=== PATIENT | male | born 1945 | race African-American/Black ===

== ENCOUNTER 2016-11-14 10:48 | Inpatient (IN) | payer OTHER ==
[2016-11-14] MEDS ORDERED: NITROGLYCERIN SL PRN (11:12)
[2016-11-14] MEDS ORDERED: ASPIRIN PO STA (11:12)
--- NOTE | 2016-11-14 11:24 | PROVIDER DOCUMENTATION ---
HPI-Respiratory General - General Chief Complaint: Shortness of Breath Stated Complaint: SOB Time Seen by Provider: 11/14/16 11:12 Allergies/Adverse Reactions: Patient Allergies Allergy/AdvReac Type Severity Reaction Status Date / Time No Known Allergies Allergy Verified 10/12/16 16:51 Home Medications: Home Medication List Medication Instructions Recorded Confirmed Last Taken Type Albuterol [Albuterol Neb] 2.5 mg INH Q4H PRN PRN 12/13/12 11/14/16 11/14/16 08: 30 History Budesonide/Formoterol Fumarate 10.2 gm IH BID 12/13/12 11/14/16 11/14/16 09:00 History [Symbicort 80-4.5 Mcg Inhaler] Clopidogrel [Plavix] 75 mg PO DAILY 12/13/12 11/14/16 11/14/16 09:00 History Pravastatin Sodium [Pravachol] 40 mg PO DAILY 12/13/12 11/14/16 11/14/16 09:00 History Albuterol Sulfate [Albuterol 8.5 gm IH Q6H PRN #1 hfa.aer.ad 04/22/16 11/14/16 11/14/16 10:30 Rx Sulfate Hfa] Folic Acid 1 mg PO QAM 04/22/16 11/14/16 11/14/16 09:00 History Omeprazole [Prilosec] 20 mg PO DAILY@0700 04/22/16 11/14/16 11/14/16 06:00 History Dimethicone/Oxybenzone [place] 0 gm TOP PRN PRN #0 stick 10/12/16 11/14/16 Rx [Blistex Medicated [place] Lip [place]] Furosemide [Lasix] 40 mg PO DAILY #0 tablet 10/12/16 11/14/16 11/14/16 09:00 Rx Magnesium Cl D.r. [Slow-Mag] 64 mg PO DAILY #0 tablet 10/12/16 11/14/16 09:00 Rx Mupirocin Ointment [Bactroban 1 applicatn TOP BID #0 tube 10/12/16 11/14/16 Rx Ointment] Digoxin [Lanoxin] 125 microgm PO DAILY #0 tablet 10/17/16 11/14/1617 06: 00 Rx Diltiazem C.d. [Cardizem C.d] 120 mg PO DAILY #1 capsule 10/17/16 11/14/1611/14 09:00 Rx Roflumilast [Daliresp] 500 microgm PO DAILY #0 tablet 10/17/16 11/14/16 06:00 Rx Spironolactone [Aldactone] 25 mg PO BID #0 tablet 10/17/16 11/14/16 11/14/16 09: 00 Rx Tiotropium [place] Inhaler 1 puff INH RTDAILY #0 inhaler 10/17/16 11/14/1611/14 09:00 Rx [Spiriva] Acidophilus/[place] [Lactinex 1 tab PO DAILY 11/14/16 11/14/16 11/14/16 09: 00 History Chewable] Aspirin EC 1 tab PO DAILY 11/14/16 11/14/16 11/14/16 09:00 History Isosorbide Mononitrate [Isosorbide 1 tab PO DAILY 11/14/16 11/14/16 11/14/16 09: 00 History Mononitrate ER] Levofloxacin [Levaquin] 1 tab PO DAILY 11/14/16 11/14/16 11/14/16 09:00 History Menthol/Zinc Oxide Ointment 1 applic TOP BID 11/14/16 11/14/16 Unknown History [Calmoseptine Ointment] Metoprolol Tartrate 1 tab PO BID 11/14/16 11/14/16 11/14/16 09:00 History Zinc Sulfate 1 cap PO DAILY 11/14/16 11/14/16 11/14/16 09:00 History - History of Present Illness-Resp Nature of Presenting Problem: A 71 y/o M with multiple medical problems presented with SOB from [place], noted to have low O2 sats of 70's at some point and was started on O2 which improved his O2 sats, noted to have cough and subjective fevers, poor historian, on arrival no acute distress Review of Systems - Adult - REVIEW OF SYSTEMS - ADULT Constitutional: reports: no symptoms reported Eyes: reports: no symptoms reported Ears, Nose, Mouth & Throat: reports: no symptoms reported Cardiovascular: reports: no symptoms reported Respiratory: reports: see HPI Gastrointestinal: reports: no symptoms reported Genitourinary: reports: no symptoms reported Musculoskeletal: reports: no symptoms reported Integumentary: reports: no symptoms reported Neurological: reports: no symptoms reported Psychiatric: reports: no symptoms reported Endocrine: reports: no symptoms reported Hematologic/Lymphatic: reports: no symptoms reported Allergic/Immunologic: reports: no symptoms reported All Other Systems: Reviewed and Negative Past History - Adult - PAST MEDICAL HISTORY-ADULT Review of Records: reports: Old Records Reviewed, Nursing Assessment Review, Medications Reviewed, Social history reviewed & non-contributory. Major Childhood Illnesses: reports: denies history Cardiovascular: reports: CHF, HTN, hyperlipidemia Respiratory: reports: COPD Gastrointestinal: reports: denies history Obstetrical/Gynecological: reports: denies history Genitourinary: reports: denies history Musculoskeletal: reports: denies history Neurological: reports: denies history Endocrine/Immune: reports: Myeloma Other Conditions: reports: denies history - PRIOR SURGERIES/PROCEDURES Surgical/Procedure History: reports: reviewed, not pertinent - PRIOR HOSPITALIZATIONS Prior Hospitalizations: reports: for other non-related - IMMUNIZATION STATUS Childhood Immunizations: See Nurse Assessment Flu Vaccine: See Nurse Assessment - FAMILY HISTORY Family History: reviewed, not pertinent Physical Exam-General - PHYSICAL EXAM-ADULT Initial Vital Signs Reviewed: Yes - CONSTITUTIONAL General Appearance: appears well, alert, no apparent distress - EYES Eyes: PERRL/EOMI, pink conjunctivae - HEAD, EARS, NOSE, MOUTH & THROAT HENMT: normocephalic/atraumatic, moist mucous membranes, normal ENT inspection - NECK Neck: non-tender, full range of motion - RESPIRATORY Respiratory: chest non-tender, lungs clear, normal breath sounds - CARDIOVASCULAR Cardiovascular: normal peripheral pulses, regular rate, rhythm, no edema, no gallop, no JVD, no murmur - GASTROINTESTINAL (ABDOMEN) Abdominal Exam: normal bowel sounds, non tender, soft, no organomegaly, no pulsatile mass - MUSCULOSKELETAL Back Exam: normal inspection, no CVA tenderness, no vertebral tenderness Extremity: normal range of motion, non-tender - SKIN Integumentary: normal color, normal turgor - 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 as tested, grossly normal - PSYCHIATRIC Psych/Mental Status: normal mood/affect Progress - PLAN OF CARE/RESULTS Progress/Plan/Lab Results: Laboratory Tests 11/14/16 11/14/16 11/14/16 11:25 11:25 11:25 WBC 14.29 H RBC 3.15 L Hgb 10.5 L Hct 32.7 L MCV 103.8 H MCH 33.3 H MCHC 32.1 L RDW Std Deviation 16.7 H Plt Count 208 MPV 10.5 H Immature Gran % (Auto) 0.4 Neut % (Auto) 86.2 H Lymph % (Auto) 2.7 L [place] % (Auto) 10.5 H Eos % (Auto) 0.1 Baso % (Auto) 0.1 Immature Gran # (Auto) 0.06 H Neut # (Auto) 12.31 H Lymph # (Auto) 0.39 L [place] # (Auto) 1.50 H Eos # (Auto) 0.02 Baso # (Auto) 0.01 PT INR PTT (Actin FS) D-Dimer 3.12 H Specimen Type Sample Site pH pCO2 pO2 HCO3 Base Excess Oxyhemoglobin ABG O2 Sat (Calculated) ABG O2 Saturation ABG Carboxyhemoglobin ABG Methemoglobin Enrique Test A-a O2 Difference Total Hemoglobin Lactate Liter Flow Blood Gas Modality FiO2 % Sodium 131 L Potassium 5.7 H Chloride 93 L Carbon Dioxide 24 L Anion Gap 14 BUN 55 H Creatinine 1.1 Estimated GFR/1.73 m2 > 60 BUN/Creatinine Ratio 50 Glucose 105 H Calculated Osmolality 278 Calcium 9.0 Magnesium 2.2 Total Bilirubin 0.49 AST 29 ALT 25 Alkaline Phosphatase 214 H Creatine Kinase 30 Troponin T Xal-C-Qzrvtrciuom Pept Total Protein 6.4 Albumin 3.1 L Globulin 3.3 Albumin/Globulin Ratio 0.9 Urine Source Urine Color Urine Turbidity Urine pH Ur Specific [place] Urine Protein Ur Glucose (Stick) Ur Ketones (Stick) Urine Blood Urine Nitrite Urine Bilirubin Urobilinogen Dipstick Urine Leukocytes Urine WBC (Auto) Urine RBC (Auto) U Epithel Cells (Auto) Urine Bacteria (Auto) 11/14/16 11/14/16 11/14/16 11:25 11:25 11:25 WBC RBC Hgb Hct MCV MCH MCHC RDW Std Deviation Plt Count MPV Immature Gran % (Auto) Neut % (Auto) Lymph % (Auto) [place] % (Auto) Eos % (Auto) Baso % (Auto) Immature Gran # (Auto) Neut # (Auto) Lymph # (Auto) [place] # (Auto) Eos # (Auto) Baso # (Auto) PT 11.2 INR 1.06 PTT (Actin FS) 26.9 D-Dimer Specimen Type Sample Site pH pCO2 pO2 HCO3 Base Excess Oxyhemoglobin ABG O2 Sat (Calculated) ABG O2 Saturation ABG Carboxyhemoglobin ABG Methemoglobin Enrique Test A-a O2 Difference Total Hemoglobin Lactate Liter Flow Blood Gas Modality FiO2 % Sodium Potassium Chloride Carbon Dioxide Anion Gap BUN Creatinine Estimated GFR/1.73 m2 BUN/Creatinine Ratio Glucose Calculated Osmolality Calcium Magnesium Total Bilirubin AST ALT Alkaline Phosphatase Creatine Kinase Troponin T 0.045 Tsy-L-Bhdtqmdwevp Pept 2115 H Total Protein Albumin Globulin Albumin/Globulin Ratio Urine Source Urine Color Urine Turbidity Urine pH Ur Specific [place] Urine Protein Ur Glucose (Stick) Ur Ketones (Stick) Urine Blood Urine Nitrite Urine Bilirubin Urobilinogen Dipstick Urine Leukocytes Urine WBC (Auto) Urine RBC (Auto) U Epithel Cells (Auto) Urine Bacteria (Auto) 11/14/16 11/14/16 11:25 11:30 WBC RBC Hgb Hct MCV MCH MCHC RDW Std Deviation Plt Count MPV Immature Gran % (Auto) Neut % (Auto) Lymph % (Auto) [place] % (Auto) Eos % (Auto) Baso % (Auto) Immature Gran # (Auto) Neut # (Auto) Lymph # (Auto) [place] # (Auto) Eos # (Auto) Baso # (Auto) PT INR PTT (Actin FS) D-Dimer Specimen Type ARTERIAL Sample Site R RADIAL pH 7.48 H pCO2 37 pO2 84 HCO3 27.9 H Base Excess 3.9 H Oxyhemoglobin 94.2 L ABG O2 Sat (Calculated) 13.9 L ABG O2 Saturation 98.1 ABG Carboxyhemoglobin 2.40 ABG Methemoglobin 1.6 H Enrique Test YES A-a O2 Difference 98.0 Total Hemoglobin 10.4 L Lactate 0.90 Liter Flow 3.0 Blood Gas Modality [place] FiO2 % 32.0 Sodium Potassium Chloride Carbon Dioxide Anion Gap BUN Creatinine Estimated GFR/1.73 m2 BUN/Creatinine Ratio Glucose Calculated Osmolality Calcium Magnesium Total Bilirubin AST ALT Alkaline Phosphatase Creatine Kinase Troponin T Dga-P-Hdfwbbkpnxj Pept Total Protein Albumin Globulin Albumin/Globulin Ratio Urine Source CLEAN CATCH Urine Color STRAW Urine Turbidity CLEAR Urine pH 5.0 Ur Specific [place] 1.010 Urine Protein NEGATIVE Ur Glucose (Stick) NEGATIVE Ur Ketones (Stick) NEGATIVE Urine Blood NEGATIVE Urine Nitrite NEGATIVE Urine Bilirubin NEGATIVE Urobilinogen Dipstick NORMAL Urine Leukocytes NEGATIVE Urine WBC (Auto) <10 Urine RBC (Auto) <10 U Epithel Cells (Auto) <10 Urine Bacteria (Auto) NEGATIVE Orders Category Date Time Status Cardiac Monitoring DIRECTED Care 11/14/16 11:13 Active Saline Loc NOW Care 11/14/16 11:13 Active Regular Diet Diet 11/14/16 15:06 Active ANGIOGRAM/PULMONARY ARTERIES [CT] Stat Exams 11/14/16 13:05 Completed CHEST-2 VIEWS [RAD] Stat Exams 11/14/16 11:13 Taken ABG [RESP] Routine Lab 11/14/16 11:30 Completed CBC WITH ELECTRONIC DIFF [HEME] Stat Lab 11/14/16 11:25 Completed CK PROFILE [SP CHEM] Stat Lab 11/14/16 11:25 Completed COMPREHENSIVE METABOLIC PANEL [CHEM] Stat Lab 11/14/16 11:25 Completed D-DIMER [CHEM] Stat Lab 11/14/16 11:25 Completed MAGNESIUM [CHEM] Stat Lab 11/14/16 11:25 Completed PRO B-NATRIURETIC PEPTIDE Stat Lab 11/14/16 11:25 Completed PROTIME WITH INR [COAG] Stat Lab 11/14/16 11:25 Completed PTT [COAG] Stat Lab 11/14/16 11:25 Completed TROPONIN T Stat Lab 11/14/16 11:25 Completed UA NIMS W/REFLEX CULT [URINALYSIS] Stat Lab 11/14/16 11:25 Completed Albuterol 2.5MG/Ipratrop 0.5MG [Duoneb (A & A)] Med 11/14/16 11:34 Discontinued 3 ml INH NOW ONE Aspirin Med 11/14/16 11:12 Discontinued 325 mg PO STAT STA Nitroglycerin Sl [Nitroglycerin] Med 11/14/16 11:12 Active 0.4 mg SL Q5M PRN PRN Aerosol Treatments Routine Oth 11/14/16 11:36 Completed Aerosol Treatments Stat Oth 11/14/16 11:36 Completed Vital Signs Temp Pulse Resp BP Pulse Ox 11/14/16 14:30 89 100/70 11/14/16 14:00 71 97/70 100 11/14/16 13:30 79 90/68 96 11/14/16 11:50 68 16 100 11/14/16 10:21 97.6 F 68 20 101/58 86 L No Known Allergies Allergy (Verified 10/12/16 16:51) Albuterol [Albuterol Neb] 2.5 mg INH Q4H PRN PRN 12/13/12 Budesonide/Formoterol Fumarate [Symbicort 80-4.5 Mcg Inhaler] 10.2 gm IH BID Clopidogrel [Plavix] 75 mg PO DAILY 12/13/12 Pravastatin Sodium [Pravachol] 40 mg PO DAILY 12/13/12 Albuterol Sulfate [Albuterol Sulfate Hfa] 8.5 gm IH Q6H PRN #1 hfa.aer.ad Folic Acid 1 mg PO QAM 04/22/16 Omeprazole [Prilosec] 20 mg PO DAILY@0700 04/22/16 Dimethicone/Oxybenzone [place] [Blistex Medicated [place]] 0 gm TOP PRN PRN #0 stick 10/12/16 Furosemide [Lasix] 40 mg PO DAILY #0 tablet 10/12/16 Magnesium Cl D.r. [Slow-Mag] 64 mg PO DAILY #0 tablet 10/12/16 Mupirocin Ointment [Bactroban Ointment] 1 applicatn TOP BID #0 tube 10/12/16 Digoxin [Lanoxin] 125 microgm PO DAILY #0 tablet 10/17/16 Diltiazem C.d. [Cardizem C.d] 120 mg PO DAILY #1 capsule 10/17/16 Roflumilast [Daliresp] 500 microgm PO DAILY #0 tablet 10/17/16 Spironolactone [Aldactone] 25 mg PO BID #0 tablet 10/17/16 Tiotropium [place] Inhaler [Spiriva] 1 puff INH RTDAILY #0 inhaler 10/17/16 Acidophilus/[place] [Lactinex Chewable] 1 tab PO DAILY 11/14/16 Aspirin EC 1 tab PO DAILY 11/14/16 Isosorbide Mononitrate [Isosorbide Mononitrate ER] 1 tab PO DAILY 11/14/16 Levofloxacin [Levaquin] 1 tab PO DAILY 11/14/16 Menthol/Zinc Oxide Ointment [Calmoseptine Ointment] 1 applic TOP BID 11/14/16 Metoprolol Tartrate 1 tab PO BID 11/14/16 Zinc Sulfate 1 cap PO DAILY 11/14/16 Dietary Diet Regular Diet Start MonNov 14 1506 Laboratory 11/14/16 11/14/16 11/14/16 11:30 11:25 11:25 WBC RBC Hgb Hct MCV MCH MCHC RDW Std Deviation Plt Count MPV Immature Gran % (Auto) Neut % (Auto) Lymph % (Auto) [place] % (Auto) Eos % (Auto) Baso % (Auto) Immature Gran # (Auto) Neut # (Auto) Lymph # (Auto) [place] # (Auto) Eos # (Auto) Baso # (Auto) PT INR PTT (Actin FS) D-Dimer Specimen Type ARTERIAL Sample Site R RADIAL pH 7.48 H pCO2 37 pO2 84 HCO3 27.9 H Base Excess 3.9 H Oxyhemoglobin 94.2 L ABG O2 Sat (Calculated) 13.9 L ABG O2 Saturation 98.1 ABG Carboxyhemoglobin 2.40 ABG Methemoglobin 1.6 H Enrique Test YES A-a O2 Difference 98.0 Total Hemoglobin 10.4 L Lactate 0.90 Liter Flow 3.0 Blood Gas Modality [place] FiO2 % 32.0 Sodium Potassium Chloride Carbon Dioxide Anion Gap BUN Creatinine Estimated GFR/1.73 m2 BUN/Creatinine Ratio Glucose Calculated Osmolality Calcium Magnesium Total Bilirubin AST ALT Alkaline Phosphatase Creatine Kinase Troponin T 0.045 Nld-N-Gxiykhqdrqa Pept Total Protein Albumin Globulin Albumin/Globulin Ratio Urine Source CLEAN CATCH Urine Color STRAW Urine Turbidity CLEAR Urine pH 5.0 Ur Specific [place] 1.010 Urine Protein NEGATIVE Ur Glucose (Stick) NEGATIVE Ur Ketones (Stick) NEGATIVE Urine Blood NEGATIVE Urine Nitrite NEGATIVE Urine Bilirubin NEGATIVE Urobilinogen Dipstick NORMAL Urine Leukocytes NEGATIVE Urine WBC (Auto) <10 Urine RBC (Auto) <10 U Epithel Cells (Auto) <10 Urine Bacteria (Auto) NEGATIVE 11/14/16 11/14/16 11/14/16 11:25 11:25 11:25 WBC RBC Hgb Hct MCV MCH MCHC RDW Std Deviation Plt Count MPV Immature Gran % (Auto) Neut % (Auto) Lymph % (Auto) [place] % (Auto) Eos % (Auto) Baso % (Auto) Immature Gran # (Auto) Neut # (Auto) Lymph # (Auto) [place] # (Auto) Eos # (Auto) Baso # (Auto) PT 11.2 INR 1.06 PTT (Actin FS) 26.9 D-Dimer 3.12 H Specimen Type Sample Site pH pCO2 pO2 HCO3 Base Excess Oxyhemoglobin ABG O2 Sat (Calculated) ABG O2 Saturation ABG Carboxyhemoglobin ABG Methemoglobin Enrique Test A-a O2 Difference Total Hemoglobin Lactate Liter Flow Blood Gas Modality FiO2 % Sodium Potassium Chloride Carbon Dioxide Anion Gap BUN Creatinine Estimated GFR/1.73 m2 BUN/Creatinine Ratio Glucose Calculated Osmolality Calcium Magnesium Total Bilirubin AST ALT Alkaline Phosphatase Creatine Kinase Troponin T Ylm-A-Dystatwhqix Pept 2115 H Total Protein Albumin Globulin Albumin/Globulin Ratio Urine Source Urine Color Urine Turbidity Urine pH Ur Specific [place] Urine Protein Ur Glucose (Stick) Ur Ketones (Stick) Urine Blood Urine Nitrite Urine Bilirubin Urobilinogen Dipstick Urine Leukocytes Urine WBC (Auto) Urine RBC (Auto) U Epithel Cells (Auto) Urine Bacteria (Auto) 11/14/16 11/14/16 11:25 11:25 WBC 14.29 H RBC 3.15 L Hgb 10.5 L Hct 32.7 L MCV 103.8 H MCH 33.3 H MCHC 32.1 L RDW Std Deviation 16.7 H Plt Count 208 MPV 10.5 H Immature Gran % (Auto) 0.4 Neut % (Auto) 86.2 H Lymph % (Auto) 2.7 L [place] % (Auto) 10.5 H Eos % (Auto) 0.1 Baso % (Auto) 0.1 Immature Gran # (Auto) 0.06 H Neut # (Auto) 12.31 H Lymph # (Auto) 0.39 L [place] # (Auto) 1.50 H Eos # (Auto) 0.02 Baso # (Auto) 0.01 PT INR PTT (Actin FS) D-Dimer Specimen Type Sample Site pH pCO2 pO2 HCO3 Base Excess Oxyhemoglobin ABG O2 Sat (Calculated) ABG O2 Saturation ABG Carboxyhemoglobin ABG Methemoglobin Enrique Test A-a O2 Difference Total Hemoglobin Lactate Liter Flow Blood Gas Modality FiO2 % Sodium 131 L Potassium 5.7 H Chloride 93 L Carbon Dioxide 24 L Anion Gap 14 BUN 55 H Creatinine 1.1 Estimated GFR/1.73 m2 > 60 BUN/Creatinine Ratio 50 Glucose 105 H Calculated Osmolality 278 Calcium 9.0 Magnesium 2.2 Total Bilirubin 0.49 AST 29 ALT 25 Alkaline Phosphatase 214 H Creatine Kinase 30 Troponin T Rvu-O-Ooifdstwrcr Pept Total Protein 6.4 Albumin 3.1 L Globulin 3.3 Albumin/Globulin Ratio 0.9 Urine Source Urine Color Urine Turbidity Urine pH Ur Specific [place] Urine Protein Ur Glucose (Stick) Ur Ketones (Stick) Urine Blood Urine Nitrite Urine Bilirubin Urobilinogen Dipstick Urine Leukocytes Urine WBC (Auto) Urine RBC (Auto) U Epithel Cells (Auto) Urine Bacteria (Auto) - EKG 1 Time of EKG reading by physician:: 11:25 Rate: 68 Rhythm: NSR Endeavor: normal QRS: normal NE Interval: normal ST Wave: normal Prior EKG Comparison: no prior EKG Comments: T inversion in II,III,avf - XRAY 1 XRAY Study: Chest Impression: See EMR Report - CT/MRI 1 CT Study: Angiogram Impression: See EMR Report - CONSULTS/PCP/HOSPITALIST Notification #1 *Consult/PCP/Hospitalist*: DR Giron Time Discussed: 15:20 Consult Disposition: Will see in ED Departure - Departure Time of Disposition Order: 15:20 DIAGNOSIS: COPD (chronic obstructive pulmonary disease) with emphysema Qualifiers: Emphysema type: unspecified Qualified Code(s): J43.9 - Emphysema, unspecified CHF (congestive heart failure) Qualifiers: Congestive heart failure type: systolic Congestive heart failure chronicity: unspecified congestive heart failure chronicity Qualified Code(s): I50.20 - Unspecified systolic (congestive) heart failure Disposition: ADMITTED INPATIENT 09 Certified Medical Emergency: Emergent Condition: Fair - Critical Care Note Comments: A 71 y/o M who was admitted came in with aciute onset of SOB hypoxic initially, on further workup has elevated WBC and has possible residual consolidation on RLL taked to Dr Giron will hold on further management until he is seen by him, pt stable
[2016-11-14] MEDS ORDERED: DUONEB (A & A) INH ONE (11:34)
[2016-11-14 11:39] LABS: ALLEN TEST YES; BE 3.9 mmoll (-3.0-3.0); BLOOD TYPE ARTERIAL; DRAW SITE R RADIAL; METHB 1.6 % (0.0-1.5); O2(CT) 13.9 mL/dL (15.0-23.0); PCO2(98.6) 37 mmHg (35-45); PO2(98.6) 84 mmHg (60-100); SAMPLE BLOOD; SAO2 98.1 % (95.0-100.0); THB 10.4 g/dL (11.5-17.4); pH(98.6) 7.48 (7.35-7.45)
[2016-11-14 11:41] LABS: MODALITY CANNULA
[2016-11-14 11:51] LABS: BASO% 0.1 % (0.0-0.8); EOS# 0.02 X1000 (0.0-0.7); EOS% 0.1 % (0.0-10.0); HEMATOCRIT 32.7 % (42.0-52.0); HEMOGLOBIN 10.5 g/dL (14.0-18.0); IMM GRAN# 0.06 X1000 (0.0-0.04); IMM GRAN% 0.4 % (0.0-0.5); LYMPH# 0.39 X1000 (1.2-3.4); LYMPH% 2.7 % (20.5-51.1); MANUAL DIFF NEEDED? NO; MCH 33.3 PG (27-31); MCHC 32.1 g/dL (33-37); MCV 103.8 FL (81-99); MONO% 10.5 % (1.7-9.3); MPV 10.5 FL (7.4-10.4); NEUT% 86.2 % (42.2-75.2); PLT 208 X1000 (130-400); RBC 3.15 XMIL (4.7-6.1)
[2016-11-14 11:56] LABS: INR 1.06; PROTIME 11.2 Seconds (9.2-11.7); PTT 26.9 Seconds (22.0-36.0)
[2016-11-14 12:12] LABS: AGAP 14; ALBUMIN 3.1 g/dL (3.5-5.0); ALKALINE PHOSPHATASE 214 U/L (32-122); BUN 55 mg/dL (8-22); CHLORIDE 93 mmol/L (98-107); CK PROFILE 30 U/L (24-204); COSMO 278; GOT 29 U/L (10-34); GPT 25 U/L (10-44); MAGNESIUM 2.2 mg/dL (1.5-2.7); POTASSIUM 5.7 mmol/L (3.5-5.1); SODIUM 131 mmol/L (136-145); TCO2 24 mmol/L (25-35); TOTAL BILIRUBIN 0.49 mg/dL (0.20-1.00); TOTAL PROTEIN 6.4 g/dL (6.3-8.3)
[2016-11-14 13:13] LABS: URINE CULTURE NEEDED? NO; URINE MICRO REVIEW NEEDED? NO; URINE SOURCE CLEAN CATCH
[2016-11-14 13:16] LABS: BILIRUBIN URINE NEGATIVE (NEGATIVE); BLOOD URINE NEGATIVE (NEGATIVE); COLOR STRAW; GLUCOSE URINE NEGATIVE (NEGATIVE); LEUKOCYTES URINE NEGATIVE (NEGATIVE); NITRITE URINE NEGATIVE (NEGATIVE); PROTEIN URINE NEGATIVE (NEGATIVE); TURBIDITY URINE CLEAR (CLEAR); UROBILINOGEN URINE NORMAL (NORMAL)
[2016-11-14 13:17] LABS: UR EPITHELIAL CELLS <10 /HPF (<10); URINE BACTERIA NEGATIVE /HPF; URINE RBC <10 /HPF (<10); URINE WBC <10 /HPF (<10)
[2016-11-14] MEDS ORDERED: VANCOMYCIN IV PER PHARMACY MISC SCH (15:45)
[2016-11-14] MEDS: ZOSYN 3.375 GM/NS 50 ML IV SCH ×2 (16:45→22:51)
--- NOTE | 2016-11-14 16:53 | Diag Imaging Result Document ---
PROCEDURE NAME: CHEST-2 VIEWS - 11/14/2016 SEATED AP AND LATERAL RADIOGRAPH OF CHEST: COMPARISON: 10/15/2016. FINDINGS: There is suggestion of at least mild pulmonary venous congestion. The lungs are grossly clear, otherwise. No significant pleural fluid collection is appreciated. There is stable cardiomegaly. IMPRESSION: Cardiomegaly and perhaps very mild pulmonary venous congestion.
[2016-11-14] MEDS ORDERED: VANCOMYCIN 1,400 MG in NS 250 ML IV ONE (17:00)
--- NOTE | 2016-11-14 17:35 | Diag Imaging Result Document ---
PROCEDURE NAME: ANGIOGRAM/PULMONARY ARTERIES - 11/14/2016 CTA CHEST: COMPARISON: 10/12/2016. FINDINGS: There is no evidence of pulmonary embolism. Patchy aortic atherosclerotic calcification and extensive coronary artery calcification is stable. Cardiomegaly is again noted. However, the heart appears less prominent than the previous study. Pulmonary emphysema is again noted. The interstitial edema seen on the previous study has improved significantly. The pleural effusions seen previously have resolved. There is residual consolidation in the right lower lobe with a dense focal consolidation at the superior aspect of the right lower lobe. It is somewhat rounded. Consider followup to assure resolution. There are a few vague tree-in-bud opacities more inferiorly in the wrist right lower lobe. This probably represents an atypical infectious/inflammatory process. The posterior aspect of the left 11th rib is focally irregular and expanded. However, this is essentially stable as far back as a previous CT in 2012. IMPRESSION: 1. No evidence of pulmonary embolism. 2. Interval resolution of bilateral effusions and improvement in interstitial edema. 3. Residual consolidation in the right lower lobe. Consider at least plain radiograph followup to assure resolution. 4. Cardiomegaly, but the heart does appear to be smaller than the previous study. 5. Other incidental/nonacute findings detailed above.
[2016-11-14] MEDS ORDERED: ALBUTEROL NEB INH PRN (19:42)
[2016-11-14] MEDS: BACTROBAN OINTMENT TOP SCH (22:25)
[2016-11-14] MEDS: SODIUM CHLORIDE 0.9% INJ SCH (22:26)
[2016-11-14] MEDS: CALMOSEPTINE OINTMENT TOP SCH (22:26)
[2016-11-14] MEDS: PROTONIX IV SCH ×2 (22:26→22:51)
[2016-11-14] MEDS: ALDACTONE PO SCH (22:26)
[2016-11-14] MEDS: LOPRESSOR PO SCH (22:27)
--- NOTE | 2016-11-14 22:46 | HISTORY AND PHYSICAL ---
ONCOLOGIST: Delio Sen M.D. [employer]ITEWATER RAFTING GUIDE: Vic Uriarte M.D. CHIEF COMPLAINT: Shortness of breath. HISTORY OF PRESENT ILLNESS: Mr. Randolph is a 71-year-old, male, well known to our service with multiple medical problems including congestive heart failure, CAD, COPD on home O2, multiple myeloma, chronic thrombocytopenia, and pulmonary hypertension who was last discharged from our service on 10/17/2016. At that time he was diagnosed with COPD exacerbation, chronic respiratory failure and pulmonary hypertension. He was discharged to a long-term care facility in [place]. Per patient's report, he was discharged prior to his 6 week date, for reasons we are not exactly sure. He was unable to really say if he left on his own accord or if he was discharged by the facility. At any rate he started having some shortness of breath this morning and felt he was not breathing right, and came to the ER for evaluation. He denies any fevers or chills. No chest pain. He is reporting increased sputum production with a whitish color. There is no nausea, vomiting or abdominal pain. No lower extremity edema or significant orthopnea. When he got to the ER today labs and diagnostics were done. He was noted to have some leukocytosis and secondary to an elevated D-dimer he had a CTA done which revealed a right-sided consolidation consistent with pneumonia. We are now going to admit the patient for acute on chronic respiratory failure and health care associated pneumonia. PAST MEDICAL HISTORY: 1. Multiple myeloma. 2. COPD on home O2. 3. Pulmonary hypertension. 4. Systolic heart failure with EF of 40-45%. 5. Pulmonary hypertension. 6. CAD. 7. Chronic anemia. 8. Bilateral iliac aneurysms. PAST SURGICAL HISTORY: Coronary stenting x2. SOCIAL HISTORY: Patient states that he has quit smoking. He denies tobacco, alcohol or drug use at this time. He is single and apparently he is living at home right now. REVIEW OF SYSTEMS: Ten point review of systems obtained and found to be negative with the exception of the HPI. FAMILY HISTORY: Noncontributory. ALLERGIES: No known drug allergies. HOME MEDICATIONS: Acidophilus 1 tablet daily, albuterol 2.5 mg inhaled q.4 hours as needed, aspirin 81 mg daily, budesonide/formoterol 10.2 g inhaled b.i.d., Plavix 75 mg daily, folic acid 1 mg p.o. a.m., isosorbide mononitrate 30 mg q.24 hours, metoprolol tartrate 25 mg b.i.d., Prilosec 20 mg daily, Pravachol 40 mg daily, zinc sulfate 220 mg daily, albuterol as needed, Lanoxin 225 mcg daily, Cardizem CD 120 mg daily, Lasix 40 mg daily, Slow-Mag 64 mg daily, Bactroban 1 application topically as directed, Daliresp 500 mcg daily, Aldactone 25 mg b.i.d., Spiriva inhaled daily. PHYSICAL EXAMINATION: VITAL SIGNS: Blood pressure is 101/58, heart rate 68, respiratory rate is 20, O2 saturation is 96% on nasal cannula 4 L, temperature is 97.6 degrees. GENERAL: This is a chronically ill-appearing, 71-year-old, male, lying in hospital bed in no acute distress. NEUROLOGIC: The patient is awake, alert, and oriented. He follows commands. No focal deficits are noted. HEENT: Head atraumatic and normocephalic. His pupils are equal, round, reactive to light. Oral mucosa is moist. Trachea is midline. NECK: There is no JVD or carotid bruits. CHEST: Diminished throughout with rhonchi on the right. Chest rises Symmetrically. CARDIOVASCULAR: Regular rate and rhythm. S1-S2 is noted. No appreciable murmurs, gallops, clicks, or rubs. GASTROINTESTINAL: Soft, nondistended, nontender. Bowel sounds positive. EXTREMITIES: Without edema, clubbing or cyanosis. Pulses are diminished but palpable bilaterally. DIAGNOSTIC DATA: CTA of the chest is negative for PE or thoracic aortic aneurysm and dissection. There is consolidation on the right. WBC 14.29, hemoglobin 10.5, hematocrit 32.7, MCV 103.8, platelet count 208,000. D-dimer 3.12, PT 11.2, INR 1.06. ABG on 3 L nasal cannula: pH 7.48, CO2 37, O2 84, bicarb 27.9, lactate 0.9. Sodium 131, potassium 5.7, chloride 93, CO2 24, anion gap 14, BUN 55, creatinine 1.1, glucose 105, calcium 9, magnesium 2.2, alkaline phosphatase is 214, CK 30, troponin negative, proBNP 2115, Albumin 3.1. UA is negative for urinary tract infection or other acute process. ASSESSMENT AND PLAN: 1. Acute on chronic respiratory failure: Secondary to chronic obstructive pulmonary disease exacerbation and health care associated pneumonia. We will treat underlying pneumonia and COPD appropriately. Check daily ABGs and chest x-ray. We will also consult with Dr. Uriarte. 2. Health care associated pneumonia: We will obtain blood cultures and lactic acid. Initiate broad-spectrum antibiotics including vancomycin and Zosyn as he has had multiple hospital admissions in the past few weeks and months. We will check daily chest x-rays and consult with Dr. Uriarte. 3. Chronic obstructive pulmonary disease exacerbation: As above. 4. Diastolic heart failure: We will add a mild dose of Lasix. Monitor strict I and Os. Daily weights. 5. Pulmonary hypertension: Chronic and stable, continue his home medications. 6. Multiple myeloma, this is chronic and stable. We will monitor at this time. 7. Chronic anemia: Essentially unchanged since his last visit, overall chronic and stable. Continue to monitor. Continue his home medications. 8. We will add Lovenox for DVT prophylaxis and IV Protonix for gastrointestinal prophylaxis. 9. Further recommendations to follow. Dictated by KAY Izquierdo for Jorge Escoto MD
[2016-11-15] MEDS: DUONEB (A & A) INH SCH ×5 (01:52→19:28)
[2016-11-15 03:11] LABS: HEMATOCRIT 32.1 % (42.0-52.0); HEMOGLOBIN 10.3 g/dL (14.0-18.0); MCH 33.1 PG (27-31); MCHC 32.1 g/dL (33-37); MCV 103.2 FL (81-99); MPV 9.8 FL (7.4-10.4); RBC 3.11 XMIL (4.7-6.1)
[2016-11-15 03:32] LABS: AGAP 11; BUN 45 mg/dL (8-22); CALCIUM 8.9 mg/dL (8.8-10.2); CHLORIDE 94 mmol/L (98-107); COSMO 279; SODIUM 132 mmol/L (136-145); TCO2 27 mmol/L (25-35)
[2016-11-15] MEDS: ZOSYN 3.375 GM/NS 50 ML IV SCH ×4 (03:45→22:37)
[2016-11-15 04:48] LABS: ALLEN TEST YES; BE 5.1 mmoll (-3.0-3.0); BLOOD TYPE ARTERIAL; DRAW SITE R RADIAL; METHB 1.3 % (0.0-1.5); O2(CT) 9.9 mL/dL (15.0-23.0); PCO2(98.6) 45 mmHg (35-45); PO2(98.6) 78 mmHg (60-100); SAMPLE BLOOD; SAO2 98.1 % (95.0-100.0); THB 7.4 g/dL (11.5-17.4); pH(98.6) 7.43 (7.35-7.45)
[2016-11-15 04:52] LABS: MODALITY CANNULA
--- NOTE | 2016-11-15 05:56 | EKG Report ---
Test Performed on : 11/14/2016 11:05:05 AM Test Reason : No Order in [employer] Blood Pressure : / mmHG Vent. Rate : 068 BPM Atrial Rate : 068 BPM P-R Int : 170 ms QRS Dur : 090 ms QT Int : 368 ms P-R-T Axes : 000 103 -66 degrees QTc Int : 391 ms Normal sinus rhythm. Rightward axis ST & T wave abnormality, consider inferior ischemia ST & T wave abnormality, consider anterior ischemia Abnormal ECG When compared with ECG of 14-OCT-2016 13:49, Significant changes have occurred Unconfirmed Result
--- NOTE | 2016-11-15 07:54 | Diag Imaging Result Document ---
PROCEDURE NAME: CHEST-PORTABLE - 11/15/2016 SINGLE FRONTAL RADIOGRAPH OF THE CHEST: COMPARISON: 11/14/2016. FINDINGS: The mild pulmonary venous congestion appears to have improved. No new consolidation is identified. There is no definite pleural fluid collection. There is stable cardiomegaly. IMPRESSION: Improvement of the already mild pulmonary venous congestion. Stable chest, otherwise.
[2016-11-15] MEDS: SPIRIVA INH SCH (09:13)
[2016-11-15] MEDS: SYMBICORT 80/4.5 MICROGM INHALER INH SCH ×2 (09:21→19:29)
[2016-11-15] MEDS: LASIX IV SCH (12:41)
[2016-11-15] MEDS: LOVENOX SUBQ SCH (12:41)
[2016-11-15] MEDS: LACTINEX PO SCH (12:45)
[2016-11-15] MEDS: SLOW-MAG PO SCH (12:46)
[2016-11-15] MEDS: PRAVACHOL PO SCH (12:46)
[2016-11-15] MEDS: ASPIRIN EC PO SCH (12:46)
[2016-11-15] MEDS: ZINC SULFATE PO SCH (12:46)
[2016-11-15] MEDS: ALDACTONE PO SCH ×3 (12:46→22:36)
[2016-11-15] MEDS: FOLIC ACID PO SCH (12:46)
[2016-11-15] MEDS: DALIRESP PO SCH (12:47)
[2016-11-15] MEDS: PLAVIX PO SCH (12:47)
[2016-11-15] MEDS: CARDIZEM CD PO SCH (12:53)
[2016-11-15] MEDS: IMDUR PO SCH (12:55)
[2016-11-15] MEDS: LANOXIN PO SCH (12:57)
[2016-11-15] MEDS: LOPRESSOR PO SCH ×2 (12:58→22:36)
[2016-11-15] MEDS: BACTROBAN OINTMENT TOP SCH ×2 (13:09→22:45)
[2016-11-15] MEDS: CALMOSEPTINE OINTMENT TOP SCH ×2 (13:10→22:46)
[2016-11-15] MEDS ORDERED: SOLU-MEDROL IV SCH (14:30)
--- NOTE | 2016-11-15 15:31 | CONSULTATION ---
DATE OF CONSULTATION: 11/15/2016 REFERRING PHYSICIAN: Dr. Giron. CHIEF COMPLAINT: Shortness of breath. HISTORY OF PRESENT ILLNESS: This is a 71-year-old male with past medical history of multiple myeloma, COPD, pulmonary hypertension, CAD, chronic anemia that presented to the hospital with complaint of shortness of breath. He was recently discharged from long-term rehab facility in [place] and became short of breath. Initial diagnostics reveal a consolidation in the right side consistent with pneumonia. He has been admitted to the hospital for his chronic respiratory failure and pneumonia. PAST MEDICAL HISTORY: As mentioned in HPI, otherwise noncontributory. PAST SURGICAL HISTORY: Coronary stent x2. SOCIAL HISTORY: The patient states that he has quit smoking. Denies use of alcohol or illicit drugs and lives at home alone. FAMILY HISTORY: Noncontributory. ALLERGIES: No known drug allergies. REVIEW OF SYSTEMS: A 10-point review of systems was conducted. Pertinent is noted in the HPI, otherwise noncontributory. ACTIVE MEDICATIONS: Albuterol DuoNeb, aspirin, Symbicort, Plavix, Lanoxin, Cardizem, Lovenox, folic acid, Lasix, Imdur, magnesium, Lopressor, vancomycin, Protonix, Pravachol, Daliresp, Aldactone, Spiriva. PHYSICAL EXAMINATION: Vital Signs: Temperature 97.3 degrees, heart rate 69, respiratory rate 14, blood pressure 105/66, oxygen saturation 100%. General: Chronically ill-appearing male lying in bed, no acute distress noted. HEENT: Normocephalic, atraumatic. PERRL. Cardiovascular: Regular rate and rhythm. S1-S2 noted. Chest: Reduced entry with rhonchi on the right. Abdomen: Soft, non-distended, nontender. Bowel sounds present. Extremities: Without edema. Neurologic: Alert and oriented. LABS/INVESTIGATIONS: WBC 12.59, RBC is 3.11, hemoglobin 10.3, hematocrit 32.1, platelet count 182,000. Sodium 132, potassium 4, chloride 94, CO2 27, anion gap 11, BUN 45, creatinine 1, glucose 143. Blood gas reveals a pH of 7.43, pCO2 of 45, PO2 of 78, HC03 28.9, saturation oxygen 98. ASSESSMENT/PLAN: This is a 71-year-old -[place] male with a past medical history mentioned in history of present illness that presented to the hospital with complaint shortness of breath. He has been admitted for his acute on chronic respiratory failure secondary to chronic obstructive pulmonary disease exacerbation and healthcare associated pneumonia. Daily ABGs will be checked as well as chest x-ray. Blood cultures pending. Lactic acid 2.9. He will receive IV antibiotics, inhaled bronchodilators, also some mild diuresis for history of heart failure and DVT and GI prophylaxis. Further recommendations pending diagnostic studies. Dictated by KAY Aguila for Vic Uriarte MD
[2016-11-15] MEDS: SOLU-MEDROL IV SCH (15:42)
--- NOTE | 2016-11-15 17:26 | PROGRESS NOTE ---
DATE: 11/15/2016 SUBJECTIVE: This patient states that he is feeling much better. He is still complaining of mild shortness of breath, he denies nausea, vomiting, diarrhea, constipation. He denies fever or chills. OBJECTIVE: Vital Signs: Temperature 98 degrees, pulse 100, respiratory rate 18, blood pressure 107/76, O2 saturation 100% on 2 L of nasal cannula. HEENT: Head normocephalic. No trauma. PERRLA. Neck: Supple. No JVD. No masses. Central trachea. Chest: Decreased breath sounds globally, he has rhonchi at the right base. No wheezing. Cardiovascular: Regular rhythm and rate. No murmurs. Abdomen: Soft, nontender, nondistended. No hepatosplenomegaly. Extremities: No edema. No clubbing. No cyanosis. Decreased muscle mass. Neurological: The patient is alert and oriented x3. No focal deficits. LABORATORY: WBC 12.5, hemoglobin 10.3, hematocrit 32.1, platelets 182,000. Sodium 132, potassium 4, chloride 94, bicarbonate 27, BUN 45, creatinine 1, glucose 143, calcium 8.9. ASSESSMENT AND PLAN: 1. Acute on chronic respiratory failure, likely secondary to chronic obstructive pulmonary disease exacerbation and pneumonia. We will continue the treatment, Dr. Uriarte has been consulted. This patient is getting better. We will continue with the same management. 2. Healthcare-associated pneumonia. Blood culture has been negative. We will continue with broad spectrum antibiotics and respiratory treatment. 3. Chronic obstructive pulmonary disease exacerbation, we will continue with respiratory treatments and aggressive pulmonary toilet. He is already on antibiotics and this patient is getting also methylprednisolone 40 mg IV q.6 hours schedule, I will decrease the dose to 40 IV q.12 hours. 4. History of diastolic heart failure. We will continue with Lasix and strict in an outs and daily weights. He is not complaining of chest pain at this moment. 5. Pulmonary hypertension. This is chronic and stable. Continue with home medications. 6. History of multiple myeloma. This is chronic and stable. We will continue with the same treatment at this time. 7. Chronic anemia. Essentially this has not changed since his last disease. This is chronic and stable. 8. Deep venous thrombosis prophylaxis. We will continue with Lovenox and gastrointestinal prophylaxis, we will continue with proton pump inhibitor.
[2016-11-15] MEDS: VANCOMYCIN 1.2 GM in NS 250 ML IV SCH (17:41)
[2016-11-15] MEDS ORDERED: BLISTEX MEDICATED BERRY LIP BALM TOP ONE (18:33)
[2016-11-15] MEDS ORDERED: BLISTEX MEDICATED BERRY LIP BALM TOP PRN (18:40)
[2016-11-15] MEDS: PROTONIX IV SCH (22:37)
[2016-11-15] MEDS: SODIUM CHLORIDE 0.9% INJ SCH (22:37)
[2016-11-15] MEDS: DUONEB (A & A) INH PRN (23:18)
[2016-11-16] MEDS: DUONEB (A & A) INH SCH ×4 (03:41→22:15)
[2016-11-16] MEDS: ZOSYN 3.375 GM/NS 50 ML IV SCH ×4 (04:13→21:04)
[2016-11-16] MEDS: SOLU-MEDROL IV SCH (04:13)
[2016-11-16 04:58] LABS: ALLEN TEST YES; BE 2.3 mmoll (-3.0-3.0); BLOOD TYPE ARTERIAL; DRAW SITE R RADIAL; METHB 1.2 % (0.0-1.5); O2(CT) 12.9 mL/dL (15.0-23.0); PCO2(98.6) 43 mmHg (35-45); PO2(98.6) 68 mmHg (60-100); SAMPLE BLOOD; SAO2 95.7 % (95.0-100.0); THB 9.9 g/dL (11.5-17.4); pH(98.6) 7.41 (7.35-7.45)
[2016-11-16 04:59] LABS: MODALITY CANNULA
[2016-11-16 06:22] LABS: HEMATOCRIT 33.9 % (42.0-52.0); HEMOGLOBIN 10.7 g/dL (14.0-18.0); IMM GRAN# 0.05 X1000 (0.0-0.04); IMM GRAN% 0.6 % (0.0-0.5); LYMPH# 0.23 X1000 (1.2-3.4); LYMPH% 2.7 % (20.5-51.1); MANUAL DIFF NEEDED? YES; MCH 32.4 PG (27-31); MCHC 31.6 g/dL (33-37); MCV 102.7 FL (81-99); MONO# 0.46 X1000 (0.11-0.59); MONO% 5.4 % (1.7-9.3); MPV 10.4 FL (7.4-10.4); NEUT% 91.3 % (42.2-75.2); PLT 208 X1000 (130-400)
[2016-11-16 07:06] LABS: AGAP 13; BUN 41 mg/dL (8-22); CHLORIDE 94 mmol/L (98-107); COSMO 283; SODIUM 135 mmol/L (136-145); TCO2 28 mmol/L (25-35)
--- NOTE | 2016-11-16 07:34 | Diag Imaging Result Document ---
PROCEDURE NAME: CHEST-PORTABLE - 11/16/2016 SINGLE FRONTAL RADIOGRAPH OF THE CHEST: COMPARISON: 11/15/2016. FINDINGS: Central vasculature is perhaps very mildly prominent similar to the previous study. This may be baseline. Slight increased interstitial markings bilaterally are stable. This also may represent chronic fibrotic change. No new consolidation is identified. No definite pleural fluid collection is identified. There is stable cardiomegaly. IMPRESSION: Stable chest.
[2016-11-16 08:29] LABS: BANDS 2 % (0-1); LYMPHS 4 % (21-51); MONO 8 % (1-9)
[2016-11-16] MEDS: DALIRESP PO SCH (09:30)
[2016-11-16] MEDS: LANOXIN PO SCH (09:30)
[2016-11-16] MEDS: IMDUR PO SCH (09:30)
[2016-11-16] MEDS: ASPIRIN EC PO SCH (09:31)
[2016-11-16] MEDS: SLOW-MAG PO SCH (09:31)
[2016-11-16] MEDS: ZINC SULFATE PO SCH (09:31)
[2016-11-16] MEDS: PRAVACHOL PO SCH (09:31)
[2016-11-16] MEDS: ALDACTONE PO SCH (09:31)
[2016-11-16] MEDS: LASIX IV SCH (09:31)
[2016-11-16] MEDS: PLAVIX PO SCH (09:31)
[2016-11-16] MEDS: LACTINEX PO SCH (09:31)
[2016-11-16] MEDS: FOLIC ACID PO SCH (09:31)
[2016-11-16] MEDS: LOVENOX SUBQ SCH (09:31)
[2016-11-16] MEDS: LOPRESSOR PO SCH ×2 (09:32→21:05)
[2016-11-16] MEDS: BACTROBAN OINTMENT TOP SCH ×2 (09:32→21:05)
[2016-11-16] MEDS: CALMOSEPTINE OINTMENT TOP SCH ×2 (09:32→21:05)
[2016-11-16] MEDS: SYMBICORT 80/4.5 MICROGM INHALER INH SCH ×2 (09:55→22:15)
[2016-11-16] MEDS: SPIRIVA INH SCH (09:55)
[2016-11-16] MEDS: DUONEB (A & A) INH PRN (15:32)
[2016-11-16] MEDS: CARDIZEM CD PO SCH (15:44)
--- NOTE | 2016-11-16 16:15 | PROGRESS NOTE ---
DATE: 11/16/2016 SUBJECTIVE: This patient states that he is feeling better but he is weak, he is still complaining of mild shortness of breath. He denies nausea, vomiting, diarrhea, constipation. He denies fever or chills. I had a conversation with Dr. Uriarte and it looks like this patient has an end-stage COPD, we will try to talk to the patient about his poor condition and probably this patient will need palliative care. OBJECTIVE: Vital Signs: Temperature 98.5 degrees, pulse 107, respiratory rate 20, blood pressure 109/74, O2 saturation of 91% on 2 L of nasal cannula. General: This patient looks cachectic and frail, chronically ill patient. HEENT: Head normocephalic. No trauma. PERRLA. Neck: Supple. No JVD. No masses. Central trachea. Chest: Decreased breath sounds globally. He has rhonchi at the right base. No wheezing. Prolonged expiatory phase. Cardiovascular: RRR. No murmurs. Abdomen: Soft, nontender, nondistended. No hepatosplenomegaly. Extremities: No edema. No clubbing. No cyanosis. Decreased muscle mass. Neurological: The patient is alert and oriented x3. No focal deficits. LABORATORY: WBC 8.4, hemoglobin 10.7, hematocrit 33.9, platelet 208,000. Sodium 135, potassium 5, chloride 94, bicarbonate 28, BUN 41, creatinine 1.2, glucose 150, calcium 9, magnesium 2.4. ASSESSMENT AND PLAN: 1. Acute on chronic respiratory failure likely secondary to chronic obstructive pulmonary disease exacerbation and pneumonia. We will continue for now with the same treatment. He is getting a little bit better. Dr. Uriarte is following this patient and it looks like this patient has an end-stage chronic obstructive pulmonary disease. 2. Healthcare-associated pneumonia. Continue with broad-spectrum antibiotics and respiratory treatment. 3. End-stage chronic obstructive pulmonary disease exacerbation. I will continue with respiratory treatment and aggressive pulmonary toilet. Probably this patient will benefit from palliative care. We will continue with the same treatment for now. I will decrease the dose of steroids from 40 IV q.12 hours to 40 IV daily. 4. History of diastolic heart failure. We will continue with Lasix and straight in and outs and daily weights. He is not complaining of chest pain at this moment. 5. Pulmonary hypertension. This is chronic and stable. Continue with home medications. 6. History of multiple myeloma. This is chronic and stable. Continue with the same treatment for now. 7. Chronic anemia. Essentially this has not changed since last admission. This is chronic and stable. 8. Deep venous thrombosis prophylaxis. We will continue with Lovenox and for gastrointestinal prophylaxis we will continue with PPIs.
[2016-11-16] MEDS: VANCOMYCIN 1.2 GM in NS 250 ML IV SCH (16:38)
[2016-11-16] MEDS: PROTONIX IV SCH (21:04)
[2016-11-16] MEDS: SODIUM CHLORIDE 0.9% INJ SCH (21:05)
[2016-11-17] MEDS: DUONEB (A & A) INH SCH ×4 (03:15→19:27)
[2016-11-17] MEDS: ZOSYN 3.375 GM/NS 50 ML IV SCH ×4 (03:17→22:31)
[2016-11-17 05:56] LABS: MANUAL DIFF NEEDED? NO
[2016-11-17 06:00] LABS: HEMATOCRIT 30.7 % (42.0-52.0); HEMOGLOBIN 9.7 g/dL (14.0-18.0); IMM GRAN# 0.06 X1000 (0.0-0.04); IMM GRAN% 0.6 % (0.0-0.5); LYMPH# 0.27 X1000 (1.2-3.4); LYMPH% 2.8 % (20.5-51.1); MCH 31.9 PG (27-31); MCHC 31.6 g/dL (33-37); MONO# 1.22 X1000 (0.11-0.59); MONO% 12.7 % (1.7-9.3); MPV 9.9 FL (7.4-10.4); NEUT% 83.9 % (42.2-75.2); PLT 198 X1000 (130-400); RBC 3.04 XMIL (4.7-6.1)
[2016-11-17 06:25] LABS: AGAP 9; BUN 49 mg/dL (8-22); CALCIUM 9.1 mg/dL (8.8-10.2); CHLORIDE 94 mmol/L (98-107); COSMO 276; SODIUM 131 mmol/L (136-145); TCO2 28 mmol/L (25-35)
[2016-11-17] MEDS: SYMBICORT 80/4.5 MICROGM INHALER INH SCH ×2 (08:26→19:27)
[2016-11-17] MEDS: SPIRIVA INH SCH (08:26)
[2016-11-17] MEDS: ZINC SULFATE PO SCH (09:26)
[2016-11-17] MEDS: LACTINEX PO SCH (09:26)
[2016-11-17] MEDS: PLAVIX PO SCH (09:26)
[2016-11-17] MEDS: LOVENOX SUBQ SCH (09:26)
[2016-11-17] MEDS: FOLIC ACID PO SCH (09:26)
[2016-11-17] MEDS: SOLU-MEDROL IV SCH (09:26)
[2016-11-17] MEDS: SLOW-MAG PO SCH (09:27)
[2016-11-17] MEDS: IMDUR PO SCH (09:27)
[2016-11-17] MEDS: DALIRESP PO SCH (09:27)
[2016-11-17] MEDS: ASPIRIN EC PO SCH (09:27)
[2016-11-17] MEDS: PRAVACHOL PO SCH (09:27)
[2016-11-17] MEDS: LASIX IV SCH (09:27)
[2016-11-17] MEDS: LANOXIN PO SCH (09:27)
[2016-11-17] MEDS: ALDACTONE PO SCH (09:27)
[2016-11-17] MEDS: LOPRESSOR PO SCH ×2 (09:57→23:35)
[2016-11-17] MEDS: BACTROBAN OINTMENT TOP SCH ×2 (09:57→22:51)
[2016-11-17] MEDS: CALMOSEPTINE OINTMENT TOP SCH ×2 (09:58→22:32)
[2016-11-17] MEDS: CARDIZEM CD PO SCH (10:45)
--- NOTE | 2016-11-17 12:36 | PROGRESS NOTE ---
DATE: 11/17/2016 SUBJECTIVE: This patient states that he is feeling about the same. He is still complaining of generalized weakness. He is still complaining of mild shortness of breath. He denies nausea, vomiting, diarrhea, constipation. No fever, no chills. Today I consulted Palliative Care and they will have a conversation with the patient and the family, probably this patient qualifies for hospice care. For now, we will continue with the same treatment until we can get that meeting. OBJECTIVE: Vital Signs: Temperature 98.9 degrees, pulse 89, respiratory rate 16, blood pressure 101/64, oxygen saturation 99 on 2 L of nasal cannula. HEENT: Head normocephalic. No trauma. PERRLA. Neck: Supple. No JVD. No masses. Central trachea. Chest: Decreased breath sounds globally. He has rhonchi at the right base, prolonged expiratory phase. Scattered wheezing. Cardiovascular: RRR. No murmurs. Abdomen: Soft, nontender, nondistended. No hepatosplenomegaly. Extremities: No edema. No clubbing. No cyanosis. Decreased muscle mass. Neurological: The patient is alert and oriented x3. No focal deficits. LABORATORY: WBC 9, hemoglobin 9.7, hematocrit 30.7, platelet 198,000. Sodium 131, potassium 5, chloride 94, bicarbonate 28, BUN 49, creatinine 1.3, glucose 98, calcium 9.1, magnesium 2.3. ASSESSMENT AND PLAN: 1. Acute on chronic respiratory failure likely secondary to COPD exacerbation and pneumonia. I will continue with the same treatment for now. He is getting a little bit better. Dr. Uriarte is following this patient and it looks like he has end-stage COPD. Palliative Care talked to the patient and they will need with the family and also with the patient to discuss goals of care. Probably this patient will benefit from hospice. 2. Healthcare associated pneumonia. Continue with broad spectrum antibiotics and respiratory treatment. 3. End-stage COPD exacerbation. I will continue with the respiratory treatment and aggressive pulmonary toilet and I will continue also with steroids. 4. History of diastolic heart failure. We will continue with Lasix and strict ins an outs and daily weights. He is not complaining of chest pain at this moment. 5. Pulmonary hypertension. This is chronic and stable. Continue with home medications. 6. History of multiple myeloma. This is chronic and stable as well. Continue with the same management for now. 7. Chronic anemia. Essentially I do not see any change since last admission. This is chronic and stable. 8. DVT prophylaxis. Continue with Lovenox. 9. GI prophylaxis. Continue with PPIs.
[2016-11-17] MEDS: VANCOMYCIN 1.2 GM in NS 250 ML IV SCH (18:06)
[2016-11-17] MEDS: SODIUM CHLORIDE 0.9% INJ SCH (22:31)
[2016-11-17] MEDS: PROTONIX IV SCH (22:31)
[2016-11-18] MEDS: DUONEB (A & A) INH SCH ×2 (03:06→08:18)
[2016-11-18] MEDS: ZOSYN 3.375 GM/NS 50 ML IV SCH ×2 (03:38→09:54)
[2016-11-18 05:53] LABS: EOS# 0.01 X1000 (0.0-0.7); EOS% 0.1 % (0.0-10.0); HEMATOCRIT 26.2 % (42.0-52.0); HEMOGLOBIN 8.1 g/dL (14.0-18.0); IMM GRAN% 0.9 % (0.0-0.5); LYMPH# 0.51 X1000 (1.2-3.4); LYMPH% 4.8 % (20.5-51.1); MANUAL DIFF NEEDED? YES; MCH 31.6 PG (27-31); MCHC 30.9 g/dL (33-37); MCV 102.3 FL (81-99); MPV 9.7 FL (7.4-10.4); NEUT% 79.2 % (42.2-75.2); PLT 180 X1000 (130-400); RBC 2.56 XMIL (4.7-6.1)
[2016-11-18 06:16] LABS: AGAP 9; BUN 50 mg/dL (8-22); CALCIUM 8.9 mg/dL (8.8-10.2); CHLORIDE 95 mmol/L (98-107); COSMO 282; POTASSIUM 4.9 mmol/L (3.5-5.1); SODIUM 134 mmol/L (136-145); TCO2 30 mmol/L (25-35)
[2016-11-18 07:25] LABS: BANDS 4 % (0-1); EOS 2 % (1-10); LYMPHS 11 % (21-51); MONO 4 % (1-9); NRBC 2 % (0-0)
[2016-11-18] MEDS ORDERED: LOPRESSOR PO SCH ×2 (07:37→07:43)
[2016-11-18] MEDS: SPIRIVA INH SCH (08:18)
[2016-11-18] MEDS: SYMBICORT 80/4.5 MICROGM INHALER INH SCH (08:18)
[2016-11-18] MEDS: BACTROBAN OINTMENT TOP SCH (09:00)
[2016-11-18] MEDS: CALMOSEPTINE OINTMENT TOP SCH (09:00)
[2016-11-18] MEDS: SLOW-MAG PO SCH (09:50)
[2016-11-18] MEDS: ZINC SULFATE PO SCH (09:50)
[2016-11-18] MEDS: LACTINEX PO SCH (09:50)
[2016-11-18] MEDS: FOLIC ACID PO SCH (09:50)
[2016-11-18] MEDS: LOVENOX SUBQ SCH (09:51)
[2016-11-18] MEDS: PLAVIX PO SCH (09:51)
[2016-11-18] MEDS: DALIRESP PO SCH (09:51)
[2016-11-18] MEDS: ALDACTONE PO SCH (09:52)
[2016-11-18] MEDS: ASPIRIN EC PO SCH (09:52)
[2016-11-18] MEDS: IMDUR PO SCH (09:52)
[2016-11-18] MEDS: LANOXIN PO SCH (09:53)
[2016-11-18] MEDS: PRAVACHOL PO SCH (09:54)
[2016-11-18] MEDS: SOLU-MEDROL IV SCH (09:54)
[2016-11-18] MEDS: CARDIZEM CD PO SCH (09:55)
[2016-11-18] MEDS: LASIX IV SCH (09:55)
--- NOTE | 2016-11-18 12:29 | PALLIATIVE CARE CONSULTATION ---
DATE: 11/18/2016 REQUESTING PHYSICIAN: Jose Martin Mcqueen MD. REASON FOR CONSULTATION: Goals of care. HISTORY OF PRESENT ILLNESS: This is a 71-year-old, male, with a past medical history of multiple myeloma, COPD requiring home O2, pulmonary hypertension, systolic heart failure, coronary artery disease, chronic anemia and bilateral iliac aneurysms. He was most recently admitted on 11/14/2016 after becoming significantly short of breath and with an O2 saturation of 79% while in rehab at [facility]. He was then brought to the ED where it was revealed that he has pneumonia. He was admitted for further evaluation and treatment. Currently, he is sitting up in the hospital bed. He complains of dyspnea with exertion and with conversation. He denies nausea or pain. His family is at the bedside. The palliative care team has been consulted to assist with goals of care. REVIEW OF SYSTEMS: Twelve-point review of system has been conducted and otherwise negative, except those mentioned in the HPI. PAST MEDICAL HISTORY: See HPI. PAST SURGICAL HISTORY: Coronary stent x2. SOCIAL HISTORY: Prior to this admission he was a resident at [facility] rehab. He has 2 adult children that are involved in his care. He is a past smoker. Alcohol and drug use have been denied. FAMILY HISTORY: None pertinent. PHYSICAL EXAM: General: This is a chronically ill-appearing, male, who has mild respiratory distress with conversation. HEENT: Atraumatic, normocephalic. Neck: Trachea is midline. Cardiovascular: Normal S1, S2. Pulmonary: Lung sounds are diminished. Respirations are labored with conversation. Abdomen: Soft. Extremities: He is cachectic. No edema noted. Pulses are palpable. Skin: Warm and dry. Neuro: Alert and oriented x3. IMPRESSION: This is a 71-year-old, male with a past medical history as listed above in the history of present illness. I met with Mr. Randolph and his 2 children and ex- to discuss his goals of care. PLAN: At this point is to discharge back to rehab at [facility] and transition to long-term care placement. The children explained that his home situation is not safe for him to live, and he does not have anyone to stay with him 24 hours a day. We did discuss his end-stage lung illness and the progressive nature of that illness. Mr. Randolph does not have advanced directive or power of family law attorney. He is unsure of his end of life wishes. Currently he is a full code. Information regarding Advanced directives was given to the patient and the family, and they plan to develop that once they return to the rehab facility. Currently, Mr. Randolph's palliative performance scale appears to be 50%. As mentioned above, he is a full code. Plan is to discharge back to rehab. The palliative care team will continue to follow daily and available as needed. Thank you for this consultation. Dictated by KAY Lofton for Lamberto Kim MD
--- NOTE | 2016-11-18 14:08 | DISCHARGE SUMMARY ---
ADMISSION DATE: 11/14/2016 DISCHARGE DATE: 11/18/2016 CONSULTATION: Dr. Uriatre with pulmonology. PERTINENT PROCEDURES: 1. Chest x-ray showed cardiomegaly and perhaps very mild pulmonary venous congestion. 2. Pulmonary arteriogram showed no evidence of PE, interval resolution of bilateral effusions, and improvement of interstitial edema. Residual consolidation in the right lower lobe. 3. Cardiomegaly. DISCHARGE DIAGNOSES: 1. Acute on chronic respiratory failure secondary to chronic obstructive pulmonary disease exacerbation and pneumonia. Patient being discharged to rehabilitation. 2. End-stage chronic obstructive pulmonary disease. Palliative care did come and speak with the patient. They have decided rehabilitation at [facility] with transition to long-term care placement. They did discuss his end-stage lung illness and the progressive nature of that illness. Mr. Randolph was unsure of his end-of-life wishes. The patient to rehabilitation. 3. Healthcare-associated pneumonia. The patient was previously at long-term acute care facility. Will continue with oral antibiotics and respiratory treatments. 4. Diastolic heart failure history without exacerbation. Continue same home medications, as well as daily weights and strict intake/output. 5. Pulmonary hypertension. Chronic and stable. 6. Multiple myeloma history. Chronic and stable. 7. Chronic anemia. Chronic and stable. 8. Generalized deconditioning. The patient going to rehabilitation. HOSPITAL COURSE: Briefly, Mr. Randolph is a 71-year-old, male, well known to our service for multiple admissions with his medical problems, including congestive heart failure, COPD on home O2. Also carries a history of CAD, multiple myeloma, chronic thrombocytopenia, pulmonary hypertension. Last discharge on our service was 10/17/2016 to an LTAC in [place]. At that time, he was diagnosed with a COPD exacerbation, chronic respiratory failure, and pulmonary hypertension. Per the patient's report, he was discharged prior to his 6 week date. He was unable to give the exact reason why as if he left on his own accord or if he was discharged by the facility. The patient did report having some shortness of breath with his breathing on the morning of admission, so he came to the ED for evaluation. He did report increased sputum production that was a whitish color. He was also noted to have leukocytosis and an elevated D- dimer. He had a CTA that did show a right-sided consolidation, but no PE. The patient was admitted for acute on chronic respiratory failure and healthcare-associated pneumonia. Patient was started on broad-spectrum antibiotics, as well as bronchodilators and aggressive pulmonary toilet. A consult with respiratory as well as some mild diuresis. Patient also noted to have some generalized weakness throughout his admission. PT was consulted as well as director social service and palliative care for goals of care. They decided for [facility] and transition to long- term care placement being that his home situation was not safe for him to live, and he did not have anyone to stay with him 24 hours a day. The palliative care did discuss the end-stage lung illness and the progressive nature. Mr. Randolph did not have an advanced directive or power of clerk of works. He is still unsure of his end-of-life wishes and remains a full code. Information regarding the advanced directives was given to him and the family, and they made a plan to develop 1 once they return to the rehabilitation facility. Mr. Randolph has been accepted to [facility] and he is being discharged today. DISCHARGE DIET: Healthy heart with Ensure t.i.d. DISCHARGE MEDICATIONS: Please see MAR as per Dr. Contreras. FOLLOWUP: Patient can continue to follow up with Dr. Uriarte and Dr. Sen as indicated. He still does not have a primary care physician. Again, the list will be provided to him from a list of doctors accepting new patients. Patient is being discharged to [facility]. The patient can return to the ED for any worsening of symptoms. TIME SPENT: Discharge summary greater than 30 minutes. Dictated by KAY Suresh for Jose Martin Mcqueen MD
[2016-11-18 15:04] VITALS: BP 116/72
[2016-11-18] MEDS ORDERED: PROTONIX PO SCH (21:00)
[2016-11-19] MEDS ORDERED: LEVAQUIN PO SCH (09:00)
== END 2016-11-18 15:36 | DRG 190 ==
LOC: EDBD → ED 10:48 → EDIPHOLD 16:31 → 4N 18:48
PROVIDERS: ATTEND Internal Medicine
DX: J44.0 Chronic obstructive pulmonary disease with (acute) lower respiratory infection (principal); J96.20 Acute and chronic respiratory failure, unspecified whether with hypoxia or hypercapnia; J18.9 Pneumonia, unspecified organism; I27.2 Other secondary pulmonary hypertension; I11.0 Hypertensive heart disease with heart failure; C90.00 Multiple myeloma not having achieved remission; D69.6 Thrombocytopenia, unspecified; I50.32 Chronic diastolic (congestive) heart failure; Z99.81 Dependence on supplemental oxygen; J44.1 Chronic obstructive pulmonary disease with (acute) exacerbation; E78.5 Hyperlipidemia, unspecified; I25.10 Atherosclerotic heart disease of native coronary artery without angina pectoris; Y95 Nosocomial condition; R79.1 Abnormal coagulation profile; D64.9 Anemia, unspecified; Z79.899 Other long term (current) drug therapy; Z95.5 Presence of coronary angioplasty implant and graft; Z87.891 Personal history of nicotine dependence; Z79.82 Long term (current) use of aspirin; Z79.02 Long term (current) use of antithrombotics/antiplatelets; T20.14XA Burn of first degree of nose (septum), initial encounter
CPT/HCPCS: 71010; 71020; 71275; 80048; 80053; 80202; 81001; 82270; 82550; 82805; 83605; 83735; 83880; 84484; 85025; 85027; 85379; 85610; 85730; 87040; 93005; 94640; 94761; 94799; 96365; 96366; 96367; C9113; J1650; J1940; J2543; J2920; J3370; J7050; Q9967; 97110-GP; 97530-GP; S0164

== ENCOUNTER 2016-11-24 14:53 | Inpatient (IN) | payer OTHER ==
[2016-11-24] MEDS ORDERED: DUONEB (A & A) INH ONE (15:16)
[2016-11-24 15:33] LABS: MANUAL DIFF NEEDED? NO
[2016-11-24 15:42] LABS: ALLEN TEST YES; BE -0.9 mmoll (-3.0-3.0); BLOOD TYPE ARTERIAL; DRAW SITE R RADIAL; METHB 1.8 % (0.0-1.5); O2(CT) 10.1 mL/dL (15.0-23.0); PCO2(98.6) 31 mmHg (35-45); PO2(98.6) 215 mmHg (60-100); SAMPLE BLOOD; SAO2 99.5 % (95.0-100.0); THB 7.1 g/dL (11.5-17.4); pH(98.6) 7.47 (7.35-7.45)
[2016-11-24 15:44] LABS: MODALITY NRB
[2016-11-24 15:44] LABS: BASO% 0.1 % (0.0-0.8); HEMATOCRIT 23.9 % (42.0-52.0); HEMOGLOBIN 7.3 g/dL (14.0-18.0); IMM GRAN# 0.06 X1000 (0.0-0.04); IMM GRAN% 0.5 % (0.0-0.5); LYMPH# 0.32 X1000 (1.2-3.4); LYMPH% 2.7 % (20.5-51.1); MCH 30.4 PG (27-31); MCHC 30.5 g/dL (33-37); MCV 99.6 FL (81-99); MONO% 15.2 % (1.7-9.3); NEUT% 81.5 % (42.2-75.2); PLT 155 X1000 (130-400)
--- NOTE | 2016-11-24 15:49 | Diag Imaging Result Document ---
PROCEDURE NAME: CHEST-PORTABLE - 11/24/2016 AP PORTABLE CHEST: TIME: 15:25 hours. FINDINGS: The inspiration is less optimal than on 11/16/2016. Otherwise, there has been no significant change in the appearance of the chest. The heart size is at the upper limits of normal and the pulmonary vascularity is prominent. IMPRESSION: Mild cardiomegaly. The possibility of mild interstitial pulmonary edema cannot be excluded, however, this has not changed significantly since the previous studies.
[2016-11-24 15:51] LABS: INR 1.05; PROTIME 11.1 Seconds (9.2-11.7); PTT 32.8 Seconds (22.0-36.0)
[2016-11-24 16:04] LABS: ALBUMIN 3.1 g/dL (3.5-5.0); CALCIUM 9.1 mg/dL (8.8-10.2); MAGNESIUM 2.2 mg/dL (1.5-2.7); POTASSIUM 4.7 mmol/L (3.5-5.1); TOTAL BILIRUBIN 0.41 mg/dL (0.20-1.00); TOTAL PROTEIN 5.8 g/dL (6.3-8.3)
--- NOTE | 2016-11-24 16:06 | PROVIDER DOCUMENTATION ---
HPI-Respiratory General - General Chief Complaint: Abnormal Lab[s] Stated Complaint: abnormal labs Time Seen by Provider: 11/24/16 15:02 Allergies/Adverse Reactions: Patient Allergies Allergy/AdvReac Type Severity Reaction Status Date / Time No Known Allergies Allergy Verified 11/24/16 15:35 Home Medications: Home Medication List Medication Instructions Recorded Confirmed Last Taken Type Albuterol [Albuterol Neb] 2.5 mg INH Q4H PRN PRN 12/13/12 11/24/16 11/14/16 08: 30 History Budesonide/Formoterol Fumarate 10.2 gm IH BID 12/13/12 11/24/16 11/14/16 09:00 History [Symbicort 80-4.5 Mcg Inhaler] Clopidogrel [Plavix] 75 mg PO DAILY 12/13/12 11/24/16 11/24/16 History Pravastatin Sodium [Pravachol] 40 mg PO DAILY 12/13/12 11/24/16 11/24/16 History Albuterol Sulfate [Albuterol 8.5 gm IH Q6H PRN #1 hfa.aer.ad 04/22/16 11/24/16 11/14/16 10:30 Rx Sulfate Hfa] Folic Acid 1 mg PO QAM 04/22/16 11/24/16 11/24/16 History Dimethicone/Oxybenzone Reeves 0 gm TOP PRN PRN #0 stick 10/12/16 11/24/16 Rx [Blistex Medicated [place] Reeves] Furosemide [Lasix] 40 mg PO DAILY #0 tablet 10/12/16 11/24/16 11/24/16 Rx Magnesium Cl D.r. [Slow-Mag] 64 mg PO DAILY #0 tablet 10/12/16 11/24/16 Rx Mupirocin Ointment [Bactroban 1 applicatn TOP BID #0 tube 10/12/16 11/24/16 Rx Ointment] Diltiazem C.d. [Cardizem Cd] 120 mg PO DAILY #1 capsule 10/17/16 11/24/16 Rx Roflumilast [Daliresp] 500 microgm PO DAILY #0 tablet 10/17/16 11/24/16 Rx Spironolactone [Aldactone] 25 mg PO BID #0 tablet 10/17/16 11/24/16 11/24/16 Rx Tiotropium [place] Inhaler 1 puff INH RTDAILY #0 inhaler 10/17/16 11/24/1611/24 Rx [Spiriva] Acidophilus/Bulgaricus [Lactinex 1 tab PO DAILY 11/14/16 11/24/16 11/14/16 09: 00 History Chewable] Aspirin EC 1 tab PO DAILY 11/14/16 11/24/16 11/24/16 History Menthol/Zinc Oxide Ointment 1 applic TOP BID 11/14/16 11/24/16 Unknown History [Calmoseptine Ointment] Metoprolol Tartrate 1 tab PO BID 11/14/16 11/24/16 11/24/16 History Zinc Sulfate 1 cap PO DAILY 11/14/16 11/24/16 11/24/16 History Pantoprazole [Protonix] 40 mg PO HS #30 tablet 11/18/16 11/24/16 11/24/16 Rx - History of Present Illness-Resp Nature of Presenting Problem: A 71 y/o M who was seen frequently in ED was sent from the nursing facility for complains of SOB and low Hb, pt in general uses 3 lit of home O2 on presentation his O2 saturation dropped to low 70's inspite on O2, complained of SOB, has decreased appetite, no CP/n/v/d/maher Review of Systems - Adult - REVIEW OF SYSTEMS - ADULT Constitutional: reports: no symptoms reported Eyes: reports: no symptoms reported Ears, Nose, Mouth & Throat: reports: no symptoms reported Cardiovascular: reports: no symptoms reported Respiratory: reports: see HPI Gastrointestinal: reports: no symptoms reported Genitourinary: reports: no symptoms reported Musculoskeletal: reports: no symptoms reported Integumentary: reports: no symptoms reported Neurological: reports: no symptoms reported Psychiatric: reports: no symptoms reported Endocrine: reports: no symptoms reported Hematologic/Lymphatic: reports: no symptoms reported Allergic/Immunologic: reports: no symptoms reported All Other Systems: Reviewed and Negative Past History - Adult - PAST MEDICAL HISTORY-ADULT Review of Records: reports: Old Records Reviewed, Nursing Assessment Review, Medications Reviewed, Social history reviewed & non-contributory. Major Childhood Illnesses: reports: denies history Cardiovascular: reports: CHF, HTN, hyperlipidemia Respiratory: reports: COPD Gastrointestinal: reports: denies history Obstetrical/Gynecological: reports: denies history Genitourinary: reports: denies history Musculoskeletal: reports: denies history Neurological: reports: denies history Endocrine/Immune: reports: Myeloma Other Conditions: reports: denies history - PRIOR SURGERIES/PROCEDURES Surgical/Procedure History: reports: reviewed, not pertinent - PRIOR HOSPITALIZATIONS Prior Hospitalizations: reports: for other non-related - IMMUNIZATION STATUS Childhood Immunizations: See Nurse Assessment Flu Vaccine: See Nurse Assessment - FAMILY HISTORY Family History: reviewed, not pertinent Physical Exam-General - PHYSICAL EXAM-ADULT Initial Vital Signs Reviewed: Yes - CONSTITUTIONAL General Appearance: appears well, mild distress - EYES Eyes: PERRL/EOMI, pink conjunctivae - HEAD, EARS, NOSE, MOUTH & THROAT HENMT: normocephalic/atraumatic, moist mucous membranes, normal ENT inspection - NECK Neck: non-tender, full range of motion - RESPIRATORY Respiratory: chest non-tender, rales, rhonchi, wheezing - CARDIOVASCULAR Cardiovascular: normal peripheral pulses, regular rate, rhythm, no edema - GASTROINTESTINAL (ABDOMEN) Abdominal Exam: normal bowel sounds, non tender, soft - GENITOURINARY Male Genitalia: deferred - LYMPHATIC Lymphatic: no adenopathy - MUSCULOSKELETAL Back Exam: normal inspection, no CVA tenderness Extremity: normal range of motion, non-tender - SKIN Integumentary: normal color, normal turgor - NEUROLOGIC Neurologic: deckhand tuna boat II-XII nml as tested, grossly normal - PSYCHIATRIC Psych/Mental Status: normal mood/affect Progress - PLAN OF CARE/RESULTS Progress/Plan/Lab Results: Laboratory Tests 11/24/16 11/24/16 11/24/16 14:56 14:56 14:56 WBC 11.86 H RBC 2.40 L Hgb 7.3 L Hct 23.9 L MCV 99.6 H MCH 30.4 MCHC 30.5 L RDW Std Deviation 17.0 H Plt Count 155 MPV 10.0 Immature Gran % (Auto) 0.5 Neut % (Auto) 81.5 H Lymph % (Auto) 2.7 L [place] % (Auto) 15.2 H Eos % (Auto) 0.0 Baso % (Auto) 0.1 Immature Gran # (Auto) 0.06 H Neut # (Auto) 9.67 H Lymph # (Auto) 0.32 L [place] # (Auto) 1.80 H Eos # (Auto) 0.00 Baso # (Auto) 0.01 PT INR PTT (Actin FS) D-Dimer 0.70 H Specimen Type Sample Site pH pCO2 pO2 HCO3 Base Excess Oxyhemoglobin ABG O2 Sat (Calculated) ABG O2 Saturation ABG Carboxyhemoglobin ABG Methemoglobin Enrique Test A-a O2 Difference Total Hemoglobin Lactate Blood Gas Modality FiO2 % Sodium 133 L Potassium 4.7 Chloride 95 L Carbon Dioxide 21 L Anion Gap 17 BUN 51 H Creatinine 1.5 H Estimated GFR/1.73 m2 56 BUN/Creatinine Ratio 34 Glucose 96 Calculated Osmolality 280 Calcium 9.1 Magnesium 2.2 Total Bilirubin 0.41 AST 23 ALT 22 Alkaline Phosphatase 177 H Creatine Kinase 31 Troponin T Onq-N-Mrmoobxlshc Pept Total Protein 5.8 L Albumin 3.1 L Globulin 2.7 Albumin/Globulin Ratio 1.1 Blood Type Antibody Screen Crossmatch 11/24/16 11/24/16 11/24/16 14:56 14:56 14:56 WBC RBC Hgb Hct MCV MCH MCHC RDW Std Deviation Plt Count MPV Immature Gran % (Auto) Neut % (Auto) Lymph % (Auto) [place] % (Auto) Eos % (Auto) Baso % (Auto) Immature Gran # (Auto) Neut # (Auto) Lymph # (Auto) [place] # (Auto) Eos # (Auto) Baso # (Auto) PT 11.1 INR 1.05 PTT (Actin FS) 32.8 D-Dimer Specimen Type Sample Site pH pCO2 pO2 HCO3 Base Excess Oxyhemoglobin ABG O2 Sat (Calculated) ABG O2 Saturation ABG Carboxyhemoglobin ABG Methemoglobin Enrique Test A-a O2 Difference Total Hemoglobin Lactate Blood Gas Modality FiO2 % Sodium Potassium Chloride Carbon Dioxide Anion Gap BUN Creatinine Estimated GFR/1.73 m2 BUN/Creatinine Ratio Glucose Calculated Osmolality Calcium Magnesium Total Bilirubin AST ALT Alkaline Phosphatase Creatine Kinase Troponin T 0.046 Xce-U-Bilcpmvvczb Pept 3751 H Total Protein Albumin Globulin Albumin/Globulin Ratio Blood Type Antibody Screen Crossmatch 11/24/16 11/24/16 15:33 15:43 WBC RBC Hgb Hct MCV MCH MCHC RDW Std Deviation Plt Count MPV Immature Gran % (Auto) Neut % (Auto) Lymph % (Auto) [place] % (Auto) Eos % (Auto) Baso % (Auto) Immature Gran # (Auto) Neut # (Auto) Lymph # (Auto) [place] # (Auto) Eos # (Auto) Baso # (Auto) PT INR PTT (Actin FS) D-Dimer Specimen Type ARTERIAL Sample Site R RADIAL pH 7.47 H pCO2 31 L pO2 215 H HCO3 24.2 Base Excess -0.9 Oxyhemoglobin 95.5 ABG O2 Sat (Calculated) 10.1 L ABG O2 Saturation 99.5 ABG Carboxyhemoglobin 2.20 ABG Methemoglobin 1.8 H Enrique Test YES A-a O2 Difference 459.0 Total Hemoglobin 7.1 L Lactate 2.50 H Blood Gas Modality NRB FiO2 % 100.0 Sodium Potassium Chloride Carbon Dioxide Anion Gap BUN Creatinine Estimated GFR/1.73 m2 BUN/Creatinine Ratio Glucose Calculated Osmolality Calcium Magnesium Total Bilirubin AST ALT Alkaline Phosphatase Creatine Kinase Troponin T Eco-U-Wdykqshtoue Pept Total Protein Albumin Globulin Albumin/Globulin Ratio Blood Type O POSITIVE Antibody Screen NEGATIVE Crossmatch See Detail Orders Category Date Time Status Cardiac Monitoring DIRECTED Care 11/24/16 15:16 Active Nursing- MD Consult Request ROUTINE Care 11/24/16 17:59 Active Saline Loc NOW Care 11/24/16 15:16 Active Transfuse .Give-Transfuse Care 11/24/16 16:00 Active Transfuse .Give-Transfuse Care 11/24/16 18:03 Active MD [Physician/Provider Consults] Routine Cons 11/24/16 17:58 Ordered CHEST-PORTABLE [RAD] Stat Exams 11/24/16 15:17 Completed ABG [RESP] Routine Lab 11/24/16 15:33 Completed CBC WITH ELECTRONIC DIFF [HEME] Stat Lab 11/24/16 14:56 Completed CK PROFILE [SP CHEM] Stat Lab 11/24/16 14:56 Completed COMPREHENSIVE METABOLIC PANEL [CHEM] Stat Lab 11/24/16 14:56 Completed D-DIMER [CHEM] Stat Lab 11/24/16 14:56 Completed LRPC (RED CELLS) [BBK] Stat Lab 11/24/16 15:43 Completed MAGNESIUM [CHEM] Stat Lab 11/24/16 14:56 Completed OCCULT BLOOD SCREENING [STOOL] Stat Lab 11/24/16 16:58 Completed PRBC [LRPC (RED CELLS)] [BBK] Routine Lab 11/24/16 18:02 Uncollected PRO B-NATRIURETIC PEPTIDE Stat Lab 11/24/16 14:56 Completed PROTIME WITH INR [COAG] Stat Lab 11/24/16 14:56 Completed PTT [COAG] Stat Lab 11/24/16 14:56 Completed TROPONIN T Stat Lab 11/24/16 14:56 Completed TYPE & SCREEN [BBK] Stat Lab 11/24/16 15:43 Completed 0.9% Sodium Chloride Inj [Ns] 500 ml Med 11/24/16 17:26 Discontinued .ROUTE As Directed 0.9% Sodium Chloride Inj [Ns] 80 ml Med 11/24/16 18:00 Active Pantoprazole [Protonix] 80 mg IV 10 mls/hr Albuterol 2.5MG/Ipratrop 0.5MG [Duoneb (A & A)] Med 11/24/16 15:16 Discontinued 3 ml INH NOW ONE Albuterol 2.5MG/Ipratrop 0.5MG [Duoneb (A & A)] Med 11/24/16 19:30 Active 3 ml INH RTQ4H Budesonide [Pulmicort] Med 11/24/16 19:30 Active 0.5 mg INH RTBID Pantoprazole [Protonix] Med 11/27/16 18:00 Active 40 mg IV Q12H Pantoprazole [Protonix] 80 mg Med 11/24/16 17:59 Active 0.9% Sodium Chloride Inj [Ns] 80 ml IV NOW Sucralfate [Carafate Liquid] Med 11/24/16 20:00 Active 1 gm PO Q6HR Aerosol Treatments Routine Oth 11/24/16 15:17 Completed Aerosol Treatments Routine Oth 11/24/16 18:01 Active Aerosol Treatments Stat Oth 11/24/16 15:17 Completed Aerosol Treatments Stat Oth 11/24/16 18:01 Active EKG [EKG] Stat Ther 11/24/16 15:10 Ordered Vital Signs Temp Pulse Resp BP Pulse Ox 11/24/16 17:50 97.8 F 80 22 102/62 100 11/24/16 16:21 96 H 25 H 110/79 95 11/24/16 15:42 68 16 92 L 11/24/16 15:11 78 90/58 100 No Known Allergies Allergy (Verified 11/24/16 15:35) Albuterol [Albuterol Neb] 2.5 mg INH Q4H PRN PRN 12/13/12 Budesonide/Formoterol Fumarate [Symbicort 80-4.5 Mcg Inhaler] 10.2 gm IH BID Clopidogrel [Plavix] 75 mg PO DAILY 12/13/12 Pravastatin Sodium [Pravachol] 40 mg PO DAILY 12/13/12 Albuterol Sulfate [Albuterol Sulfate Hfa] 8.5 gm IH Q6H PRN #1 hfa.aer.ad Folic Acid 1 mg PO QAM 04/22/16 Dimethicone/Oxybenzone [place]eves [Blistex Medicated [place] Reeves] 0 gm TOP PRN PRN #0 stick 10/12/16 Furosemide [Lasix] 40 mg PO DAILY #0 tablet 10/12/16 Magnesium Cl D.r. [Slow-Mag] 64 mg PO DAILY #0 tablet 10/12/16 Mupirocin Ointment [Bactroban Ointment] 1 applicatn TOP BID #0 tube 10/12/16 Diltiazem C.d. [Cardizem Cd] 120 mg PO DAILY #1 capsule 10/17/16 Roflumilast [Daliresp] 500 microgm PO DAILY #0 tablet 10/17/16 Spironolactone [Aldactone] 25 mg PO BID #0 tablet 10/17/16 Tiotropium [place] Inhaler [Spiriva] 1 puff INH RTDAILY #0 inhaler 10/17/16 Acidophilus/[place]icus [Lactinex Chewable] 1 tab PO DAILY 11/14/16 Aspirin EC 1 tab PO DAILY 11/14/16 Menthol/Zinc Oxide Ointment [Calmoseptine Ointment] 1 applic TOP BID 11/14/16 Metoprolol Tartrate 1 tab PO BID 11/14/16 Zinc Sulfate 1 cap PO DAILY 11/14/16 Pantoprazole [Protonix] 40 mg PO HS #30 tablet 11/18/16 I&O 11/23/16 11/24/16 11/25/16 07:59 07:59 07:59 Intake Total 0 Balance 0 Laboratory 11/24/16 11/24/16 11/24/16 15:43 15:33 14:56 WBC RBC Hgb Hct MCV MCH MCHC RDW Std Deviation Plt Count MPV Immature Gran % (Auto) Neut % (Auto) Lymph % (Auto) [place] % (Auto) Eos % (Auto) Baso % (Auto) Immature Gran # (Auto) Neut # (Auto) Lymph # (Auto) [place] # (Auto) Eos # (Auto) Baso # (Auto) PT INR PTT (Actin FS) D-Dimer Specimen Type ARTERIAL Sample Site R RADIAL pH 7.47 H pCO2 31 L pO2 215 H HCO3 24.2 Base Excess -0.9 Oxyhemoglobin 95.5 ABG O2 Sat (Calculated) 10.1 L ABG O2 Saturation 99.5 ABG Carboxyhemoglobin 2.20 ABG Methemoglobin 1.8 H Enrique Test YES A-a O2 Difference 459.0 Total Hemoglobin 7.1 L Lactate 2.50 H Blood Gas Modality NRB FiO2 % 100.0 Sodium Potassium Chloride Carbon Dioxide Anion Gap BUN Creatinine Estimated GFR/1.73 m2 BUN/Creatinine Ratio Glucose Calculated Osmolality Calcium Magnesium Total Bilirubin AST ALT Alkaline Phosphatase Creatine Kinase Troponin T 0.046 Zzz-H-Iycsuaccwsj Pept Total Protein Albumin Globulin Albumin/Globulin Ratio Blood Type O POSITIVE Antibody Screen NEGATIVE Crossmatch See Detail 11/24/16 11/24/16 11/24/16 14:56 14:56 14:56 WBC RBC Hgb Hct MCV MCH MCHC RDW Std Deviation Plt Count MPV Immature Gran % (Auto) Neut % (Auto) Lymph % (Auto) [place] % (Auto) Eos % (Auto) Baso % (Auto) Immature Gran # (Auto) Neut # (Auto) Lymph # (Auto) [place] # (Auto) Eos # (Auto) Baso # (Auto) PT 11.1 INR 1.05 PTT (Actin FS) 32.8 D-Dimer 0.70 H Specimen Type Sample Site pH pCO2 pO2 HCO3 Base Excess Oxyhemoglobin ABG O2 Sat (Calculated) ABG O2 Saturation ABG Carboxyhemoglobin ABG Methemoglobin Enrique Test A-a O2 Difference Total Hemoglobin Lactate Blood Gas Modality FiO2 % Sodium Potassium Chloride Carbon Dioxide Anion Gap BUN Creatinine Estimated GFR/1.73 m2 BUN/Creatinine Ratio Glucose Calculated Osmolality Calcium Magnesium Total Bilirubin AST ALT Alkaline Phosphatase Creatine Kinase Troponin T Agi-I-Rjyemtzrkqo Pept 3751 H Total Protein Albumin Globulin Albumin/Globulin Ratio Blood Type Antibody Screen Crossmatch 11/24/16 11/24/16 14:56 14:56 WBC 11.86 H RBC 2.40 L Hgb 7.3 L Hct 23.9 L MCV 99.6 H MCH 30.4 MCHC 30.5 L RDW Std Deviation 17.0 H Plt Count 155 MPV 10.0 Immature Gran % (Auto) 0.5 Neut % (Auto) 81.5 H Lymph % (Auto) 2.7 L [place] % (Auto) 15.2 H Eos % (Auto) 0.0 Baso % (Auto) 0.1 Immature Gran # (Auto) 0.06 H Neut # (Auto) 9.67 H Lymph # (Auto) 0.32 L [place] # (Auto) 1.80 H Eos # (Auto) 0.00 Baso # (Auto) 0.01 PT INR PTT (Actin FS) D-Dimer Specimen Type Sample Site pH pCO2 pO2 HCO3 Base Excess Oxyhemoglobin ABG O2 Sat (Calculated) ABG O2 Saturation ABG Carboxyhemoglobin ABG Methemoglobin Enrique Test A-a O2 Difference Total Hemoglobin Lactate Blood Gas Modality FiO2 % Sodium 133 L Potassium 4.7 Chloride 95 L Carbon Dioxide 21 L Anion Gap 17 BUN 51 H Creatinine 1.5 H Estimated GFR/1.73 m2 56 BUN/Creatinine Ratio 34 Glucose 96 Calculated Osmolality 280 Calcium 9.1 Magnesium 2.2 Total Bilirubin 0.41 AST 23 ALT 22 Alkaline Phosphatase 177 H Creatine Kinase 31 Troponin T Cmb-L-Zyapedbpuzm Pept Total Protein 5.8 L Albumin 3.1 L Globulin 2.7 Albumin/Globulin Ratio 1.1 Blood Type Antibody Screen Crossmatch - EKG 1 Time of EKG reading by physician:: 16:09 EKG Interpretation (*Must complete 3 of following elements*): Abnormal [place]: right Comments: ST depression in V3-5 cheanged from previous one T inversion in III - XRAY 1 XRAY Study: Chest Impression: See EMR Report - CONSULTS/PCP/HOSPITALIST Notification #1 *Consult/PCP/Hospitalist*: Dr Mcqueen Consult Disposition: Admit Departure - Departure Time of Disposition Order: 18:11 DIAGNOSIS: Elevated d-dimer, Lower GI bleed, Hypoxia Anemia Qualifiers: Anemia type: unspecified type Qualified Code(s): D64.9 - Anemia, unspecified Disposition: ADMITTED INPATIENT 09 Certified Medical Emergency: Emergent Condition: Fair - Critical Care Note Comments: Pt was sent in for low HB was found to be hypoxic on presentation, labs showed anemia initaiated transfusion protocol, given duoneb Rx and ventimask improved O2 sats will admit for further eval, positive for hemoccult
[2016-11-24] MEDS ORDERED: NS 500 ML ONE (17:26)
[2016-11-24] MEDS ORDERED: PROTONIX 80 MG in NS 80 ML IV ONE (17:59)
--- NOTE | 2016-11-24 18:55 | HISTORY AND PHYSICAL ---
This is a 71-year-old male, well known to our service apparently with multiple medical problems including congestive heart failure, coronary artery disease, COPD on home O2, multiple myeloma, chronic thrombocytopenia, pulmonary hypertension and apparently has been diagnosed with lung cancer and previously had a stent placed in his heart that he could remember. Apparently he was admitted back on 10/17/2016. At time he was diagnosed with COPD exacerbation, chronic respiratory failure, pulmonary hypertension. Was discharged to a terminal worker care facility in [place], I think [facility]. The patient reports he was discharged prior to his 6 week date for reasons we are not exactly sure. He was not able to really say if he left on his own accord or he was discharged from the facility. At any rate, he started having some shortness of breath and presented back here on 11/14/2016. Did not feel like he was breathing right and I think they found a lung cancer. REVIEW OF PAST MEDICAL HISTORY: 1. Multiple myeloma. 2. COPD on home O2. 3. Pulmonary hypertension. 4. Systolic heart failure. Ejection fraction 40-45%. 5. Pulmonary hypertension. 6. Coronary artery disease. 7. Chronic anemia. 8. Bilateral iliac aneurysms. PAST SURGICAL HISTORY: Coronary stenting x2. SOCIAL HISTORY: States he has quit smoking. Denies alcohol or drug use. He is single and he was living in REVIEW OF SYSTEMS: He feels like he has lost weight. He does not have much appetite. Not sure how much he has lost in the last couple months. I think he has not been going to treatment for his lung cancer. He is followed by Dr. Sen. He denies any hemoptysis or hematemesis or hematochezia but when he presented his hemoglobin was low. He has felt chilled and weak all over. EXAM: Today temp 97.8 degrees, pulse 80, respirations 22, blood pressure 102/62, O2 saturation 100%.HEENT: Pupils are equal and round. Lungs: Clear in all lung vazquez anterolateral. Cardiovascular: Regular rhythm and rate without murmur or S3. Abdomen: Soft, nontender, nondistended. Skin: Warm and dry. 5 feet 8 inches tall. LAB: White count 93400, hematocrit was 23, platelet count 155,000. Sodium 133, potassium 4.7, chloride 95, bicarb 21, BUN 51, creatinine 1.5. Hemoglobin 7.3 and MCV was 99. Blood gases on arrival, pH was 7.47, pCO2 31, PO2 was 215. O2 saturation was 99%, a difference 459. The stool they tested was heme-positive. Chest x-ray mild cardiomegaly. Possible mild interstitial pulmonary edema cannot be excluded. However there is not much change since his previous study. I think they compared it to one on 11/14/2016. CURRENT MEDICATIONS: He is on acidophilus bulgaricus which is a probiotic chewable 1 a day. Albuterol 2.5 inhaler q.4. Albuterol sulfate 1 inhalation q.6 hours p.r.n. Aspirin extended enteric-coated 1 daily. Budesonide formoterol which is Symbicort 80/4.5 inhaler b.i.d. Plavix 75 mg a day. Diltiazem CD 120 mg a day. He is taking Lasix 40 mg a day. Magnesium Slow-Mag 64 mg p.o. daily. Metoprolol to be taken 1 tablet b.i.d., not sure of the mg dose. Protonix 40 mg at bedtime. Pravastatin 40 mg a day. Daliresp which is roflumilast 500 mcg daily. Spironolactone 25 mg b.i.d. Spiriva 1 puff daily. Zinc sulfate 1 tablet daily. ASSESSMENT AND PLAN: 1. Appears to have a normocytic anemia. This may be a combination of his underlying lung cancer as well as his poor nutrition. His stools are heme positive so he may have some slow blood loss as well. I am not sure if it is going to be prudent to work him up with a colonoscopy and EGD. We will give I guess 2 units of blood and see how we do. 2. Apparently he has a history of lung cancer. Looking back at old studies he had a pulmonary arteriogram done on 11/14/2016 and I do not know when they diagnosed this or details, if they have a tissue diagnosis of that. He seems to think he has. Lung cancer is being treated by Dr. Sen. Dr. Kim saw him on 11/18/2016. We will see if we can get more information. 3. Protein calorie malnutrition, losing weight. See if we can encourage p.o. intake. 4. Coronary artery disease. He has had stents placed in the past. He is on Plavix but if we are having a little bit of a GI blood loss we may need to consider holding the Plavix. 5. History of multiple myeloma. I will ask Dr. Sen to kind of see where we are. At the present time his counts look pretty good except for anemia. His calcium was 9.1. 6. Renal insufficiency. His creatinine is 1.5. Previous creatinines, I do not know if I can find all visits. He has had a creatinine 1.0 back in 11/15/2016 so it may be this may be all prerenal. 7. COPD, apparently chronic O2 dependent end-stage COPD. 8. Diastolic heart failure. 9. Pulmonary hypertension.
[2016-11-24] MEDS: PULMICORT INH SCH (19:30)
[2016-11-24] MEDS: DUONEB (A & A) INH SCH ×2 (19:30→23:16)
[2016-11-24] MEDS ORDERED: NS 1,000 ML IV SCH (19:50)
[2016-11-24] MEDS ORDERED: TYLENOL PO PRN (19:50)
[2016-11-24] MEDS ORDERED: ZOFRAN IV PRN (19:50)
[2016-11-24] MEDS: CARAFATE LIQUID PO SCH (21:53)
[2016-11-24] MEDS: CALMOSEPTINE OINTMENT TOP SCH (21:54)
[2016-11-24] MEDS: BACTROBAN OINTMENT TOP SCH (21:54)
[2016-11-24] MEDS: LOPRESSOR PO SCH (21:55)
[2016-11-24] MEDS: NORCO-7.5 PO PRN (23:37)
[2016-11-25] MEDS: PROTONIX 80 MG in NS 80 ML IV SCH ×2 (01:15→01:16)
[2016-11-25] MEDS: CARAFATE LIQUID PO SCH ×4 (03:49→19:59)
[2016-11-25] MEDS: DUONEB (A & A) INH SCH ×6 (03:51→23:42)
[2016-11-25 05:42] LABS: MANUAL DIFF NEEDED? NO
--- NOTE | 2016-11-25 05:56 | EKG Report ---
Test Performed on : 11/24/2016 2:56:28 PM Test Reason : SOB Blood Pressure : / mmHG Vent. Rate : 077 BPM Atrial Rate : 077 BPM P-R Int : 156 ms QRS Dur : 098 ms QT Int : 344 ms P-R-T Axes : 056 094 -29 degrees QTc Int : 389 ms Normal sinus rhythm. Rightward axis Incomplete right bundle branch block Cannot rule out Inferior infarct , age undetermined Abnormal ECG When compared with ECG of 14-NOV-2016 11:05, Minimal criteria for Inferior infarct are now present ST more depressed in Anterior leads Nonspecific T wave abnormality has replaced inverted T waves in Anterior leads Unconfirmed Result
[2016-11-25 06:13] LABS: AGAP 13; ALKALINE PHOSPHATASE 163 U/L (32-122); BUN 38 mg/dL (8-22); CALCIUM 9.1 mg/dL (8.8-10.2); CHLORIDE 99 mmol/L (98-107); COSMO 280; GOT 23 U/L (10-34); GPT 21 U/L (10-44); POTASSIUM 4.5 mmol/L (3.5-5.1); SODIUM 136 mmol/L (136-145); TCO2 24 mmol/L (25-35); TOTAL BILIRUBIN 0.73 mg/dL (0.20-1.00); TOTAL PROTEIN 5.8 g/dL (6.3-8.3)
[2016-11-25 07:26] LABS: HEMATOCRIT 30.8 % (42.0-52.0); HEMOGLOBIN 10.1 g/dL (14.0-18.0); IMM GRAN# 0.05 X1000 (0.0-0.04); IMM GRAN% 0.5 % (0.0-0.5); LYMPH# 0.41 X1000 (1.2-3.4); LYMPH% 3.9 % (20.5-51.1); MCH 30.7 PG (27-31); MCHC 32.8 g/dL (33-37); MCV 93.6 FL (81-99); MONO# 1.18 X1000 (0.11-0.59); MONO% 11.3 % (1.7-9.3); MPV 9.6 FL (7.4-10.4); NEUT% 84.3 % (42.2-75.2); PLT 121 X1000 (130-400); RBC 3.29 XMIL (4.7-6.1)
[2016-11-25] MEDS: PULMICORT INH SCH ×2 (07:26→19:55)
[2016-11-25 07:52] LABS: INR 1.02; PROTIME 10.8 Seconds (9.2-11.7); PTT 39.7 Seconds (22.0-36.0)
[2016-11-25] MEDS: LOPRESSOR PO SCH ×2 (08:01→19:59)
[2016-11-25] MEDS: ZINC SULFATE PO SCH (08:02)
[2016-11-25] MEDS: ASPIRIN EC PO SCH (08:03)
[2016-11-25] MEDS: PRAVACHOL PO SCH (08:03)
[2016-11-25] MEDS: FOLIC ACID PO SCH (08:03)
[2016-11-25] MEDS: PLAVIX PO SCH (08:03)
[2016-11-25] MEDS: BACTROBAN OINTMENT TOP SCH ×2 (08:05→20:00)
[2016-11-25] MEDS: CARDIZEM CD PO SCH (08:06)
[2016-11-25] MEDS: LACTINEX PO SCH (08:07)
[2016-11-25] MEDS: DALIRESP PO SCH (08:08)
[2016-11-25] MEDS: SLOW-MAG PO SCH (08:09)
--- NOTE | 2016-11-25 08:45 | PROGRESS NOTE ---
DATE: 11/25/2016 SUBJECTIVE: He states that he is not sure if he feels any better or not. He got 2 units of blood yesterday. His breathing appears comfortable. He is about to eat breakfast. OBJECTIVE: Vital Signs: His exam today, temperature 97.7 degrees, pulse 94, respirations 16, blood pressure 120/71. HEENT: Pupils are equal, round. Lungs: Clear anterolaterally and posteriorly. Cardiovascular: Regular rhythm and rate without murmur or S3. Abdomen: Soft. Skin: Warm and dry. Good urine output. LABORATORY DATA: White count 10,450, hematocrit 30, platelet count 121,000. Chemistry: Sodium 136, potassium 4.5, chloride 99, bicarbonate 24, BUN 38, and creatinine 1.2, which has come down from 1.5 yesterday, albumin 3. ASSESSMENT AND PLAN: 1. Normocytic anemia, but I also suspect some blood loss anemia. Stools were heme-positive. No gross hematochezia. We gave him 2 units of blood. He has a history of multiple myeloma. 2. Multiple myeloma, apparently followed by Dr. Sen in the past. I am not sure where we are as far as treatment and followup. Dr. Sen will see him. 3. Protein-calorie malnutrition. By his report, he is losing weight. Encourage oral intake. He looks hungry this morning, about to start breakfast. 4. Coronary artery disease. He has had stents placed in the past. I do not see any sign of active ischemia right now. 5. Renal insufficiency. Creatinine is improved a little bit with some fluids. 6. Chronic obstructive pulmonary disease on chronic oxygen, and I think he is end-stage chronic obstructive pulmonary disease. 7. Diastolic heart failure. 8. History of pulmonary hypertension. 9. I would like to see if we can get him back to [facility], see what Dr. Sen has to say or what he needs to do for his followup of multiple myeloma. Right now his electrolytes look pretty good. Followup electrolytes this morning look good, so hopefully we can get him back [facility]. MEDICATIONS: He is on zinc sulfate 220 mg daily, magnesium 64 mg, daily Plavix 75 mg a day. He is on normal saline right now at 75 mL an hour. Lopressor 12.5 b.i.d., acidophilus 1 a day, Pravachol 40 mg a day, folic acid 1 mg every a.m., Daliresp 500 mg p.o. daily, diltiazem CD 120 mg daily, aspirin 81 mg a day. We have him on Pulmicort 0.5 mg b.i.d. and albuterol treatments, Protonix 40 mg IV every 12 hours for right now. He is getting hydrocodone 7.5 mg; he got 1 in the emergency room. No pain at the present time. I think we will stop his Protonix drip and just have him on 40 mg IV every 12 hours.
[2016-11-25] MEDS: CALMOSEPTINE OINTMENT TOP SCH ×2 (09:45→21:21)
[2016-11-25] MEDS: NORCO-7.5 PO PRN ×2 (09:47→19:59)
--- NOTE | 2016-11-25 10:29 | Diag Imaging Result Document ---
PROCEDURE NAME: CHEST-PORTABLE - 11/25/2016 PORTABLE CHEST: COMPARISON: 11/24/2016. FINDINGS: There is stable mild cardiomegaly. There is increased infiltrate at the medial right base. There are no other interval changes identified. IMPRESSION: Increased infiltrate at medial right base.
--- NOTE | 2016-11-25 11:55 | CONSULTATION ---
DATE OF CONSULTATION: 11/25/2016 REASON FOR CONSULT: This patient has kappa light chain multiple myeloma. We saw him last in August. He has been receiving Velcade and remained on Revlimid two weeks on, one week off. However, patient has been in a senior care over the last couple of months and his last Velcade injection was in September. I am unsure if patient is taking his Revlimid now or not. He also has chronic thrombocytopenia. HISTORY OF PRESENT ILLNESS: This patient, who is a resident of a senior care/ rehab facility apparently had some increasing dyspnea. The senior care sent him to the emergency room where his hemoglobin was found to be 7.3, hematocrit was 23.9, and patient received some packed red cells x2. His hemoglobin is now up to 10.1, hematocrit 30.8. Chest x-ray from today shows increased infiltrate at the medial right base with no other acute processes noted. The patient denies any recent fevers or chills, and his weight is down. He is not having a very good appetite and denies any bright red stool or chest pain. REVIEW OF SYSTEMS: Negative unless indicated in the HPI. ALLERGIES: There are no known allergies. MEDICATIONS: 1. Albuterol. 2. Symbicort. 3. Lasix. 4. Slow-Mag. 5. Metoprolol. 6. Cardizem. 7. Protonix. 8. Pravastatin. 9. Spironolactone. 10. Spiriva. PAST MEDICAL HISTORY: 1. Multiple myeloma. 2. COPD. Patient is on home oxygen. 3. Pulmonary hypertension. 4. Systolic heart failure. 5. Chronic anemia. 6. Chronic thrombocytopenia. 7. B12 and folic acid deficiency. 8. Neuropathy. PHYSICAL EXAM: Constitutional: This is an male who is in no acute distress. HEENT: Head is normocephalic, atraumatic. Pupils equal, round, symmetric. Mucous membranes are normal. Cardiovascular: S1, S2 audible to auscultation with no heaves, lifts, thrills. Pulmonary: Diminished bilateral bases with normal respiratory effort. Abdomen : Soft, nondistended. Positive bowel sounds in all 4 quadrants. Musculoskeletal: Moves all extremities. No bony abnormality. Extremities: Mild edema. Skin: No petechiae, no rash. Neurologic: Alert orient x3. Psychiatric: Patient is appropriate to the situation. LAB DATA: Chest x-ray, as above. WBC 10.45, hemoglobin 10.1, hematocrit 30.8, platelet count 121,000. Sodium 135, potassium 4.5, BUN 38, and creatinine 1.5. ASSESSMENT AND PLAN: 1. Bruneau light chain multiple myeloma. Until August his disease was well controlled. The patient had been receiving Velcade and Revlimid and 2 weeks on 1 week off. He has not been receiving his Velcade in a couple months due to being in a rehab facility. Unsure about his Revlimid status. We will check his free kappa light chains today as well as his immunoglobulins and SPEP. We will continue monitoring. 2. Normocytic anemia status post 2 units of blood. Hemoglobin is stable and transfuse p.r.n. 3. Chronic obstructive pulmonary disease. The patient is on home oxygen. Continue supportive care. 4. Systolic heart failure. Dictated by KAY Romero for Delio Sen MD MTDD
[2016-11-26] MEDS: CARAFATE LIQUID PO SCH ×4 (01:20→22:11)
[2016-11-26] MEDS: DUONEB (A & A) INH SCH ×6 (02:34→23:20)
[2016-11-26] MEDS: PULMICORT INH SCH ×2 (07:25→23:21)
[2016-11-26] MEDS: CALMOSEPTINE OINTMENT TOP SCH ×2 (08:30→22:12)
[2016-11-26] MEDS: BACTROBAN OINTMENT TOP SCH ×2 (09:05→22:11)
[2016-11-26] MEDS: LOPRESSOR PO SCH ×2 (09:05→22:13)
[2016-11-26] MEDS: ZINC SULFATE PO SCH (09:07)
[2016-11-26] MEDS: PLAVIX PO SCH (09:07)
[2016-11-26] MEDS: LACTINEX PO SCH (09:07)
[2016-11-26] MEDS: SLOW-MAG PO SCH (09:07)
[2016-11-26] MEDS: PRAVACHOL PO SCH (09:07)
[2016-11-26] MEDS: DALIRESP PO SCH (09:08)
[2016-11-26] MEDS: FOLIC ACID PO SCH (09:08)
[2016-11-26] MEDS: CARDIZEM CD PO SCH (09:08)
[2016-11-26] MEDS: ASPIRIN EC PO SCH (09:09)
[2016-11-26] MEDS ORDERED: LASIX IV ONE (12:09)
--- NOTE | 2016-11-26 12:56 | PROGRESS NOTE ---
DATE: 11/26/2016 SUBJECTIVE: He said he had a rough night. Trouble breathing. We gave him 2 units of blood. PHYSICAL EXAMINATION: Temperature 97.7 degrees, pulse 76, respirations 18, blood pressure 165/94. Pupils are equal and round. Lungs sounded clear in all lung vazquez. CVP was about 8 cm water pressure. Urine output was about 1500 mL. LABORATORY DATA: Lab from today: White count 10,450. Hematocrit 30, platelet count 121,000. ASSESSMENT AND PLAN: 1. I appreciate Dr. Sen's help. This patient has kappa light chain multiple myeloma. He was seen last August by Dr. Sen and was receiving Velcade. Remained on Revlimid 2 weeks on/1 week off; however, the patient has been in the alf for a couple of months. His last Velcade injection was in September. I am not sure if he has taken Revlimid yet or not. The patient is a resident at the rehab facility. He presented with anemia. Unsure about his status. I plan to check free kappa chains and immunoglobulins with SPEP and continue monitoring. 2. Normocytic anemia. I gave 2 units of blood. Better. 3. Chronic obstructive pulmonary disease. Lab reviewed. Creatinine went from 1.5 to 1.2. So, he seems to be doing good with that. I reviewed the orders, and I do not see any change at this point. I may give him one dose of Lasix today IV.
[2016-11-26] MEDS: NORCO-7.5 PO PRN ×2 (13:28→18:46)
[2016-11-27] MEDS: CARAFATE LIQUID PO SCH ×4 (02:42→21:03)
[2016-11-27] MEDS: DUONEB (A & A) INH SCH ×6 (03:35→23:29)
[2016-11-27] MEDS: PULMICORT INH SCH ×2 (07:29→19:30)
[2016-11-27] MEDS: BACTROBAN OINTMENT TOP SCH ×2 (08:20→21:03)
[2016-11-27] MEDS: SLOW-MAG PO SCH (08:20)
[2016-11-27] MEDS: ASPIRIN EC PO SCH (08:20)
[2016-11-27] MEDS: DALIRESP PO SCH (08:21)
[2016-11-27] MEDS: CARDIZEM CD PO SCH (08:21)
[2016-11-27] MEDS: LACTINEX PO SCH (08:21)
[2016-11-27] MEDS: PRAVACHOL PO SCH (08:21)
[2016-11-27] MEDS: ZINC SULFATE PO SCH (08:21)
[2016-11-27] MEDS: PLAVIX PO SCH (08:21)
[2016-11-27] MEDS: LOPRESSOR PO SCH ×2 (08:21→21:03)
[2016-11-27] MEDS: FOLIC ACID PO SCH (08:21)
--- NOTE | 2016-11-27 12:51 | PROGRESS NOTE ---
DATE: 11/27/2016 SUBJECTIVE: He does report that he feels better. He is still on a non-rebreather. States his breathing is improved. Feels a little stronger. Frustrated that it did not seem like his hands are as strong or cannot use them as well. He did eat half of his breakfast. OBJECTIVE: Vital signs: Temp 98.0 degrees, pulse 120, respirations 19, blood pressure 88/62. Lungs: Clear anterolateral. Cardiovascular: Regular rhythm and rate. PMI nondisplaced. Abdomen: Soft, nontender. Extremities: Without clubbing, cyanosis, or edema. LAB: Review of lab from this morning. Reviewed electrolytes and CBC from the 3rd. Creatinine 1.2; came down from 1.5. His chest x-ray on the : Increased infiltrate at the medial right base. Dr. Sen was consulted. ASSESSMENT AND PLAN: 1. He has a kappa light chain multiple myeloma. He has been receiving Velcade and Revlimid 2 weeks on and 1 week off. He has not been receiving his Velcade in a couple months due to being in a rehab facility. Unsure about Revlimid status. We will check his free kappa light chain and also check immunoglobulins and an SPEP. Continue monitoring. 2. Normocytic anemia. Received 2 units of packed red blood cells. 3. Chronic obstructive pulmonary disease. On home O2. 4. History of systolic heart failure. I am looking back to see if we have done an echocardiogram on him. He has had a carotid study done on 11/01/2013. No significant plaquing identified. There is antegrade vertebral flow bilaterally. Note, chest x-ray from 11/25 showed increased infiltrate in the medial right base. I will repeat another chest x-ray in the morning and then clinically try to get a plan for what we are going to do about treating his multiply myeloma. Encouraged p.o. intake. REVIEW OF HIS ORDERS: I do not see anything to change right now. Zinc sulfate 220 mg daily, magnesium 64 mg daily, Plavix 75 mg a day, Lopressor 12.5 b.i.d., acidophilus 1 a day, Pravachol 40 mg a day, folic acid 1 mg q.a.m., roflumilast or Daliresp 500 mcg daily, Cardizem CD 120 mg a day. I am going to check some more labs and another chest x-ray in the morning. Check hemoglobin again in the morning.
[2016-11-27] MEDS: NORCO-7.5 PO PRN (13:35)
[2016-11-27] MEDS: CALMOSEPTINE OINTMENT TOP SCH ×2 (13:37→21:03)
[2016-11-27] MEDS ORDERED: LASIX IV ONE (16:25)
[2016-11-27 16:33] LABS: ALLEN TEST YES; BE -0.8 mmoll (-3.0-3.0); BLOOD TYPE ARTERIAL; DRAW SITE R RADIAL; METHB 1.7 % (0.0-1.5); O2(CT) 12.5 mL/dL (15.0-23.0); PCO2(98.6) 35 mmHg (35-45); PO2(98.6) 54 mmHg (60-100); SAMPLE BLOOD; SAO2 90.6 % (95.0-100.0); THB 10.2 g/dL (11.5-17.4); pH(98.6) 7.43 (7.35-7.45)
[2016-11-27 16:35] LABS: MODALITY NRB
--- NOTE | 2016-11-27 16:40 | Diag Imaging Result Document ---
PROCEDURE NAME: CHEST-PORTABLE - 11/27/2016 PORTABLE CHEST: COMPARISON: 11/25/2016. FINDINGS: Interval worsening in the infiltrates in the mid and lower right lung. The heart is mildly prominent. The vessels are not distended. Questionable tiny right effusion. Small infiltrates in the left base persist. IMPRESSION: Overall worsening in the right basilar infiltrates.
[2016-11-27] MEDS: PROTONIX IV SCH (18:04)
[2016-11-28] MEDS: CARAFATE LIQUID PO SCH ×4 (03:49→22:25)
[2016-11-28] MEDS: DUONEB (A & A) INH SCH ×6 (04:01→22:57)
--- NOTE | 2016-11-28 05:41 | EKG Report ---
Test Performed on : 11/27/2016 4:49:35 PM Test Reason : SOB Blood Pressure : / mmHG Vent. Rate : 115 BPM Atrial Rate : 115 BPM P-R Int : 140 ms QRS Dur : 086 ms QT Int : 302 ms P-R-T Axes : 015 113 -58 degrees QTc Int : 417 ms Sinus tachycardia. with premature atrial complexes. Possible Right ventricular hypertrophy ST & T wave abnormality, consider inferolateral ischemia Abnormal ECG When compared with ECG of 24-NOV-2016 14:56, premature atrial complexes. are now present Vent. rate has increased BY 38 BPM Minimal criteria for Inferior infarct are no longer present Inverted T waves have replaced nonspecific T wave abnormality in Lateral leads Confirmed by Olvin SOUSA, Enrique Perkins ([id number]) on 11/28/2016 4:26:20 PM
[2016-11-28] MEDS: PROTONIX IV SCH ×2 (06:23→22:25)
[2016-11-28 06:44] LABS: AGAP 14; ALBUMIN 2.3 g/dL (3.5-5.0); ALKALINE PHOSPHATASE 198 U/L (32-122); BUN 31 mg/dL (8-22); CALCIUM 8.5 mg/dL (8.8-10.2); CHLORIDE 94 mmol/L (98-107); COSMO 269; GOT 42 U/L (10-34); GPT 32 U/L (10-44); MAGNESIUM 1.8 mg/dL (1.5-2.7); POTASSIUM 4.3 mmol/L (3.5-5.1); SODIUM 131 mmol/L (136-145); TCO2 23 mmol/L (25-35); TOTAL BILIRUBIN 0.64 mg/dL (0.20-1.00); TOTAL PROTEIN 5.4 g/dL (6.3-8.3)
[2016-11-28 07:05] LABS: BASO% 0.1 % (0.0-0.8); HEMATOCRIT 31.2 % (42.0-52.0); HEMOGLOBIN 10.1 g/dL (14.0-18.0); IMM GRAN# 0.04 X1000 (0.0-0.04); IMM GRAN% 0.2 % (0.0-0.5); LYMPH# 0.22 X1000 (1.2-3.4); LYMPH% 1.2 % (20.5-51.1); MANUAL DIFF NEEDED? YES; MCH 29.8 PG (27-31); MCHC 32.4 g/dL (33-37); MONO# 1.05 X1000 (0.11-0.59); MONO% 5.8 % (1.7-9.3); MPV 10.9 FL (7.4-10.4); NEUT% 92.7 % (42.2-75.2); PLT 67 X1000 (130-400); RBC 3.39 XMIL (4.7-6.1)
[2016-11-28] MEDS: PULMICORT INH SCH ×2 (07:20→19:35)
[2016-11-28 07:36] LABS: BANDS 20 % (0-1); LYMPHS 2 % (21-51); MONO 6 % (1-9)
--- NOTE | 2016-11-28 07:59 | Diag Imaging Result Document ---
PROCEDURE NAME: CHEST-PORTABLE - 11/28/2016 ERECT AP PORTABLE CHEST, 11/28/2016 AT 0600 HOURS: FINDINGS: There is some improvement in the opacification of the right lower lobe present on 11/27/2016. There is also decrease in the interstitial opacity over the left base. There is more pleural fluid in the minor fissure on the right however. IMPRESSION: Slightly increased pleural fluid collection on the right. Slightly improved interstitial edema. Right lower lobe pneumonia.
[2016-11-28] MEDS: BACTROBAN OINTMENT TOP SCH ×2 (08:30→21:10)
[2016-11-28] MEDS: DALIRESP PO SCH (08:34)
[2016-11-28] MEDS: SLOW-MAG PO SCH (08:34)
[2016-11-28] MEDS: LACTINEX PO SCH (08:34)
[2016-11-28] MEDS: ZINC SULFATE PO SCH (08:34)
[2016-11-28] MEDS: CARDIZEM CD PO SCH (08:34)
[2016-11-28] MEDS: PRAVACHOL PO SCH (08:35)
[2016-11-28] MEDS: ASPIRIN EC PO SCH (08:35)
[2016-11-28] MEDS: PLAVIX PO SCH (08:35)
[2016-11-28] MEDS: FOLIC ACID PO SCH (08:35)
[2016-11-28] MEDS: LOPRESSOR PO SCH ×3 (08:36→21:10)
[2016-11-28 11:25] LABS: AGAP 16; BUN 34 mg/dL (8-22); CALCIUM 8.5 mg/dL (8.8-10.2); CHLORIDE 93 mmol/L (98-107); COSMO 273; POTASSIUM 4.1 mmol/L (3.5-5.1); SODIUM 131 mmol/L (136-145); TCO2 22 mmol/L (25-35)
--- NOTE | 2016-11-28 12:30 | EKG Report ---
Test Performed on : 11/28/2016 11:44:08 AM Test Reason : svt Blood Pressure : / mmHG Vent. Rate : 147 BPM Atrial Rate : 294 BPM P-R Int : 000 ms QRS Dur : 080 ms QT Int : 294 ms P-R-T Axes : 000 101 -26 degrees QTc Int : 460 ms Atrial flutter. with 2:1 AV conduction. Possible Right ventricular hypertrophy ST & T wave abnormality, consider inferior ischemia Abnormal ECG When compared with ECG of 27-NOV-2016 16:49, (Unconfirmed) Atrial flutter. has replaced Sinus rhythm. ST no longer depressed in Inferior leads T wave inversion no longer evident in Lateral leads Confirmed by Olvin SOUSA, Enrique Perkins ([id number]) on 11/28/2016 4:28:23 PM
[2016-11-28] MEDS ORDERED: SODIUM CHLORIDE 0.9% 20 ML ONE (12:35)
--- NOTE | 2016-11-28 14:08 | CONSULTATION ---
DATE OF CONSULTATION: 11/28/2016 REASON FOR CONSULTATION: A 71-year-old black gentleman. Cardiology was consulted for atrial flutter with rapid ventricular rate. HISTORY OF PRESENT ILLNESS: Mr. Randolph is a 71-year-old black gentleman with multiple medical problems who has multiple myeloma, CAD with stent placement, COPD, pulmonary arterial hypertension, came to the emergency room with worsening shortness of breath. The patient was admitted, was noted to have tachycardia today went into atrial flutter with rapid ventricular rate. Was given Cardizem p.o. Cardiology was consulted. He is currently using a BiPAP and he complains of being short of breath. Denies chest pain. Does not perceive any ongoing palpitations. REVIEW OF SYSTEMS: A 14-point review of system was done. GI: There is no history of nausea, vomiting, diarrhea. There is no history of hematemesis or melena. Central nervous system: No focal weakness to suggest CVA, TIA. : There is no dysuria or hematuria. Central nervous system: No focal weakness. PAST MEDICAL HISTORY: 1. Coronary artery disease status post angioplasty in the past. 2. COPD. 3. Pulmonary arterial hypertension. 4. Hypertension. 5. Hyperlipidemia. 6. Tobacco abuse. 7. Carotid bruit. 8. Multiple myeloma. 9. Sleep apnea. Last echocardiogram ejection fraction of 45-50% with severe pulmonary arterial hypertension of 72 mmHg on 10/07/2016. His other problem includes. 1. Thrombocytopenia. 2. Protein energy malnutrition. 3. Renal insufficiency. 4. History of diastolic heart failure. PHYSICAL EXAMINATION: Vital Signs: Blood pressure was 105/80. Cardiovascular System: Jugular venous pressure was normal. Tachycardia was noted. Heart rate 140. First and second heart sounds were heard. Respiratory System: Scattered expiratory wheeze. Abdomen: Soft, scaphoid, nontender. There was no guarding or rigidity. Bowel sounds were heard. Central nervous system: Alert, was moving all 4 extremities. HEENT: Atraumatic. Pupils were reacting to light. LABORATORY EXAMINATION: Revealed sodium 131 potassium 4.1, BUN 34, creatinine 1.0. AST, ALT were 42 and 32, troponin 0.046. ProBNP 3751. White count of 18.15, hemoglobin 10, hematocrit 31, platelet count off 67,000. CHEST X-RAY: Chest x-ray revealed slightly increased pleural fluid collection on the right side with interstitial edema and right lower lobe pneumonia. CURRENT MEDICATIONS: Include nebulizers, aspirin 81 mg a day, Pulmicort inhalers, Plavix 75 mg a day, Cardizem CD 120, folic acid, lactobacillus, magnesium chloride, Slow-Mag, metoprolol 12.5 mg p.o. b.i.d., Protonix 40 IV, Pravachol 40, Daliresp, sucralfate, zinc sulfate. ASSESSMENT AND PLAN: Mr. Elliott Randolph is a 71-year-old gentleman with known history of coronary artery disease, pneumonia is currently admitted, also has multiple myeloma, thrombocytopenia, renal insufficiency, is admitted with shortness of breath. He has significant protein energy malnutrition as well. He is in atrial flutter with rapid ventricular rate. Recommend. 1. Digoxin 0.25 mg IV now and another dose of digoxin in a couple of hours. 2. We will move him to CICU and put him on a Cardizem drip at a rate of 5 mg/hour and continue with his beta blockers for the present time. Once his rate is under control we will change him to p.o. medications again. 3. As far as anticoagulation is concerned, he has significant thrombocytopenia. We will avoid anticoagulation at the present time. 4. For his lung problems he is on multiple medications. He has chronic obstructive pulmonary disease, pneumonia. I have not made any other changes to his medications. He has known coronary artery disease with stent placement in the past. I have not made any changes. Will continue with aspirin and Plavix. We will follow the BMP and CBC as well. 5. He is do not resuscitate level 1 code status. Thank you for the consult. Will follow hospital course.
[2016-11-28] MEDS: LANOXIN IV SCH ×2 (14:57→17:35)
[2016-11-28] MEDS: CALMOSEPTINE OINTMENT TOP SCH ×2 (15:07→22:26)
[2016-11-28] MEDS ORDERED: LANOXIN IV SCH (16:57)
--- NOTE | 2016-11-28 17:17 | PROGRESS NOTE ---
DATE: 11/28/2016 SUBJECTIVE: This patient states that he is feeling a little bit better but he continues having shortness of breath. It appears like he is using accessory muscles to breathe. I had a long conversation about comfort measures and hospice care, and after discussing all his possibilities and after discussing his advanced disease, he agreed to be DNR level. Also we will request hospice care for this patient. OBJECTIVE: Vital Signs: Temperature 98.1 degrees, pulse 146, respiratory rate 18, blood pressure 109/59, O2 saturation 88 on nonrebreather mask. HEENT: Head normocephalic. No trauma. PERRLA. Neck: Supple. No JVD. No masses. Central trachea. Chest: Decreased breath sounds globally, prolonged expiatory phase, this patient is using accessory muscles to breathe. Scattered wheezing and rales at the bases. Cardiovascular: RRR. Tachycardic. Abdomen: Soft, nontender, nondistended. No hepatosplenomegaly. Extremities: No edema. No clubbing. No cyanosis. Decreased muscle mass. Neurological Examination: The patient is alert and oriented x3. No focal neurological deficits. LABORATORY: WBC 18.1, hemoglobin 10.1, hematocrit 31.2, platelets 67,000. Sodium 131, potassium 4.1, chloride 93, bicarbonate 22, BUN 34, creatinine 1, glucose 146, calcium 8.5, phosphorus 3.2, magnesium 1.8, AST 42, ALT 32, alkaline phosphatase 198, albumin 2.3. ASSESSMENT AND PLAN: 1. Acute hypoxemic respiratory failure. We will continue with oxygen treatment. This patient is end-stage chronic obstructive pulmonary disease. 2. Chronic obstructive pulmonary disease exacerbation. This is likely chronic obstructive pulmonary disease. He is using today accessory muscles. We already consulted hospice care and we already put this patient DNR. This patient agreed with all management. 3. History of multiple myeloma. We will continue with the same treatment. Hematology/Oncology is on board. 4. Normocytic anemia status post 2 PRBCs, continue to monitor the hemoglobin and hematocrit. 5. History of coronary artery disease status post stents placed in the past. We will continue with the same management for now. 6. Supraventricular tachycardia versus atrial fibrillation. Today Cardiology Department evaluated this patient and they placed this patient on digoxin, and after that they will place this patient on diltiazem drip. We will continue to follow.
[2016-11-28] MEDS: CARDIZEM 100 MG/NS 100 ML IV SCH (17:26)
[2016-11-28] MEDS: ZOSYN 3.375 GM/NS 50 ML IV SCH (21:30)
[2016-11-28] MEDS ORDERED: VANCOMYCIN IV PER PHARMACY MISC SCH (21:30)
[2016-11-28] MEDS ORDERED: FLEBOGAMMA DIF 5% IV ONE (22:00)
[2016-11-28] MEDS: VANCOMYCIN 1,250 MG in NS 250 ML IV SCH (23:25)
[2016-11-29] MEDS ORDERED: FLEBOGAMMA DIF 5% 20 GM in DILUENT 400 ML IV ONE (02:00)
[2016-11-29] MEDS: CARAFATE LIQUID PO SCH ×6 (02:55→20:25)
[2016-11-29] MEDS: CARDIZEM 100 MG/NS 100 ML IV SCH ×2 (02:55→09:40)
[2016-11-29] MEDS: DUONEB (A & A) INH SCH ×6 (02:57→22:33)
[2016-11-29] MEDS: ZOSYN 3.375 GM/NS 50 ML IV SCH ×5 (03:50→22:42)
[2016-11-29 05:12] LABS: BASO% 0.1 % (0.0-0.8); HEMATOCRIT 30.1 % (42.0-52.0); HEMOGLOBIN 9.9 g/dL (14.0-18.0); IMM GRAN# 0.04 X1000 (0.0-0.04); IMM GRAN% 0.4 % (0.0-0.5); LYMPH# 0.24 X1000 (1.2-3.4); LYMPH% 2.2 % (20.5-51.1); MANUAL DIFF NEEDED? YES; MCH 30.1 PG (27-31); MCHC 32.9 g/dL (33-37); MCV 91.5 FL (81-99); MONO# 0.71 X1000 (0.11-0.59); MONO% 6.6 % (1.7-9.3); MPV 11.2 FL (7.4-10.4); NEUT% 90.7 % (42.2-75.2); PLT 56 X1000 (130-400); RBC 3.29 XMIL (4.7-6.1)
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
[2016-11-29] MEDS: PROTONIX IV SCH ×2 (05:27→17:19)
[2016-11-29 05:28] LABS: MONO 2 % (1-9)
[2016-11-29 05:36] LABS: AGAP 15; ALKALINE PHOSPHATASE 197 U/L (32-122); BUN 45 mg/dL (8-22); CALCIUM 8.3 mg/dL (8.8-10.2); CHLORIDE 96 mmol/L (98-107); COSMO 274; GOT 36 U/L (10-34); GPT 29 U/L (10-44); POTASSIUM 3.9 mmol/L (3.5-5.1); SODIUM 131 mmol/L (136-145); TCO2 20 mmol/L (25-35); TOTAL BILIRUBIN 0.53 mg/dL (0.20-1.00); TOTAL PROTEIN 5.1 g/dL (6.3-8.3)
[2016-11-29] MEDS: PULMICORT INH SCH ×2 (07:05→19:51)
--- NOTE | 2016-11-29 07:40 | EKG Report ---
Test Performed on : 11/29/2016 06:21:40 AM Test Reason : aflutter Blood Pressure : / mmHG Vent. Rate : 071 BPM Atrial Rate : 284 BPM P-R Int : 000 ms QRS Dur : 098 ms QT Int : 386 ms P-R-T Axes : 256 109 268 degrees QTc Int : 419 ms Atrial flutter. with 4:1 AV conduction. Incomplete right bundle branch block Possible Right ventricular hypertrophy Cannot rule out Inferior infarct (cited on or before 29-NOV-2016) Marked ST abnormality, possible anterolateral subendocardial injury Abnormal ECG When compared with ECG of 29-NOV-2016 06:21, (Unconfirmed) No significant change was found Confirmed by Olvin SOUSA, Enrique Perkins ([id number]) on 11/29/2016 5:23:40 PM
[2016-11-29] MEDS: PLAVIX PO SCH (09:39)
[2016-11-29] MEDS: PRAVACHOL PO SCH (09:39)
[2016-11-29] MEDS: DALIRESP PO SCH (09:39)
[2016-11-29] MEDS: ZINC SULFATE PO SCH (09:39)
[2016-11-29] MEDS: ASPIRIN EC PO SCH (09:39)
[2016-11-29] MEDS: FOLIC ACID PO SCH (09:39)
[2016-11-29] MEDS: LACTINEX PO SCH (09:39)
[2016-11-29] MEDS: SLOW-MAG PO SCH (09:39)
[2016-11-29] MEDS: CALMOSEPTINE OINTMENT TOP SCH ×2 (09:39→20:26)
[2016-11-29] MEDS: BACTROBAN OINTMENT TOP SCH ×2 (09:40→20:26)
[2016-11-29] MEDS: LOPRESSOR PO SCH (10:00)
[2016-11-29] MEDS: LANOXIN PO SCH (14:40)
[2016-11-29] MEDS: CARDIZEM PO SCH ×2 (14:40→20:25)
--- NOTE | 2016-11-29 18:24 | PROGRESS NOTE ---
DATE: 11/29/2016 SUBJECTIVE: This patient states that he is feeling about the same. He is still complaining of shortness of breath. He has been using the BiPAP machine on and off. This patient is DNR and I have consulted hospice care, we need to talk to the rest of the family along with the patient. OBJECTIVE: Vital Signs: Temperature 97.6 degrees, pulse 100, respiratory rate 24, blood pressure 92/59, O2 saturation 90% on BiPAP. HEENT: Head normocephalic. No trauma. PERRLA. Neck: Supple. No JVD. No masses. Central trachea. Chest: Decreased breath sounds globally. Prolonged expiratory phase. He is using accessory muscles to breathe. There is scattered wheezing and rales at the bases. Cardiovascular: RRR. Tachycardic. Abdomen: Soft, nontender, nondistended. No hepatosplenomegaly. Extremities: No edema. No clubbing. No cyanosis. Decreased muscle mass. Neurological: The patient is alert and oriented x3. No focal neurological deficits. LABORATORY: WBC 10.7, hemoglobin 9.9, hematocrit 30.1, platelet 56,000. Sodium 131, potassium 3.9, chloride 96, bicarbonate 20, BUN 45, creatinine 1.1, glucose 93, calcium 8.3, albumin 2. ASSESSMENT AND PLAN: 1. Acute hypoxemic respiratory failure. Will continue with oxygen treatment. This patient has been on and off with the BiPAP machine, he is end-stage chronic obstructive pulmonary disease. I talked to him about the possibility of hospice and he seems to understand the problem of his disease and he agreed with this plan. 2. Chronic obstructive pulmonary disease exacerbation. He is using accessory muscles. We will continue using the BiPAP machine and respiratory treatment on this patient. 3. History of multiple myeloma. We will continue with the same treatment. Hematology-oncology is on board. 4. Normocytic anemia status post 2 packed red blood cells. Continue to monitor the hemoglobin and hematocrit. 5. History of coronary artery disease status post stents placed in the past. Will continue with the same management for now. 6. Supraventricular tachycardia versus atrial fibrillation. Cardiology has been following this patient. He has been on diltiazem drip. Will continue to follow.
[2016-11-29] MEDS: VANCOMYCIN 1,250 MG in NS 250 ML IV SCH (22:58)
[2016-11-30] MEDS: DUONEB (A & A) INH SCH ×6 (02:47→23:21)
[2016-11-30] MEDS: ZOSYN 3.375 GM/NS 50 ML IV SCH ×4 (03:40→21:03)
[2016-11-30] MEDS: CARAFATE LIQUID PO SCH ×4 (05:59→21:03)
[2016-11-30 06:11] LABS: AGAP 15; BUN 38 mg/dL (8-22); CALCIUM 8.2 mg/dL (8.8-10.2); CHLORIDE 98 mmol/L (98-107); COSMO 281; POTASSIUM 3.4 mmol/L (3.5-5.1); SODIUM 136 mmol/L (136-145); TCO2 23 mmol/L (25-35)
[2016-11-30] MEDS: PROTONIX IV SCH (06:17)
[2016-11-30 06:45] LABS: BASO% 0.1 % (0.0-0.8); HEMATOCRIT 28.5 % (42.0-52.0); HEMOGLOBIN 9.3 g/dL (14.0-18.0); IMM GRAN# 0.09 X1000 (0.0-0.04); IMM GRAN% 1.1 % (0.0-0.5); LYMPH# 0.26 X1000 (1.2-3.4); LYMPH% 3.2 % (20.5-51.1); MANUAL DIFF NEEDED? YES; MCH 29.8 PG (27-31); MCHC 32.6 g/dL (33-37); MCV 91.3 FL (81-99); MONO# 0.51 X1000 (0.11-0.59); MONO% 6.4 % (1.7-9.3); MPV 11.4 FL (7.4-10.4); NEUT% 89.2 % (42.2-75.2); PLT 33 X1000 (130-400); RBC 3.12 XMIL (4.7-6.1)
[2016-11-30 07:37] LABS: BANDS 4 % (0-1); LYMPHS 1 % (21-51); MONO 5 % (1-9)
[2016-11-30] MEDS: PULMICORT INH SCH ×2 (07:52→19:24)
[2016-11-30] MEDS ORDERED: KLOR-CON PO ONE (08:06)
--- NOTE | 2016-11-30 08:22 | Diag Imaging Result Document ---
PROCEDURE NAME: CHEST-PORTABLE - 11/30/2016 SINGLE FRONTAL RADIOGRAPH OF THE CHEST: COMPARISON: 11/28/2016. FINDINGS: The opacity at the right lung base is, perhaps, marginally worse than the previous study. This is probably due to a slight increase in the small pleural effusion at the right lung base. There is persistent infiltrate at the right lung base. Interstitial opacity at the left lung base may be slightly improved. No new consolidations are identified. Cardiac silhouette is stable. IMPRESSION: Mixed mild changes as detailed above.
[2016-11-30] MEDS: CALMOSEPTINE OINTMENT TOP SCH ×2 (08:53→21:04)
[2016-11-30] MEDS: CARDIZEM PO SCH ×3 (08:54→21:03)
[2016-11-30] MEDS: LANOXIN PO SCH (08:54)
[2016-11-30] MEDS: BACTROBAN OINTMENT TOP SCH ×2 (08:54→21:04)
[2016-11-30] MEDS: LACTINEX PO SCH (08:54)
[2016-11-30] MEDS: SLOW-MAG PO SCH (08:55)
[2016-11-30] MEDS: DALIRESP PO SCH (08:55)
[2016-11-30] MEDS: FOLIC ACID PO SCH (08:55)
[2016-11-30] MEDS: ZINC SULFATE PO SCH (08:55)
[2016-11-30] MEDS: ASPIRIN EC PO SCH (08:55)
--- NOTE | 2016-11-30 13:46 | PROGRESS NOTE ---
DATE: 11/30/2016 SUBJECTIVE: This patient states that he is feeling about the same. He is still complaining about shortness of breath. He has been using nonrebreathing mask and BiPAP machine. Family members are at the bedside. I discussed this case with the daughter, and she states that they cannot take this patient home with hospice, but he is coming from [facility] and she states that they do comfort measures only, so she will talk again with her brother and her dad to decide what is going to be the next step. OBJECTIVE: Vital Signs: Temperature 97 degrees, pulse 101, respiratory rate 18, blood pressure 101/67, O2 saturation 93% on 15L on a nonrebreathing mask. HEENT: Head normocephalic. No trauma. PERRLA. Neck: Supple. No JVD. No masses. Central trachea. Chest: Decreased breath sounds globally. Prolonged expiratory phase. He is using accessory muscles to breathe. Scattered wheezing and rales, mostly at the bases. Cardiovascular: RRR. Tachycardic. Abdomen: Soft, nontender, nondistended. No hepatosplenomegaly. Extremities: No edema. No clubbing. No cyanosis. Decreased muscle mass. Neurological: The patient is alert and oriented x3. No focal neurological deficits. LABORATORIES: WBC 8, hemoglobin 9.3, hematocrit 28.5, platelets 33,000. Sodium 136, potassium 3.4, chloride 98, bicarbonate 23, BUN 38, creatinine 0.8, glucose 90, calcium 8.2. ASSESSMENT AND PLAN: 1. Acute hypoxemic respiratory failure. I will continue with oxygen treatment. This patient has been on and off with the BiPAP machine and also he has been using a nonrebreathing mass. He has end-stage chronic obstructive pulmonary disease. I talked to the family today about hospice and/or comfort measures only at [facility]. They will talk again and they will decide the plan for the patient. 2. Chronic obstructive pulmonary disease exacerbation. He is using accessory muscles. We will continue using the BiPAP machine and nonrebreathing mask. We will continue also with respiratory treatment/nebulizers. 3. History of multiple myeloma. Hem/Onc is on board. We will continue to monitor. 4. Normocytic anemia status post 2 PRBCs. Continue to monitor the hemoglobin and hematocrit. 5. Thrombocytopenia. The platelet count is 33,000, Hem-Onc has evaluated this and probably this patient will receive platelets if the platelet count goes down even more. As per the nurse, apparently this patient is scheduled for a bone marrow biopsy tomorrow. 6. History of coronary artery disease status post stent placed in the past. Continue with the same management for now. 7. Supraventricular tachycardia, possible atrial fibrillation, resolved. I will continue treating this patient in the [facility] unit. Cardiology Department is following this patient. CRITICAL CARE TIME: 35 minutes.
[2016-11-30] MEDS: MORPHINE IV PRN (17:58)
[2016-11-30] MEDS: VANCOMYCIN 1,250 MG in NS 250 ML IV SCH (23:16)
[2016-12-01] MEDS: CARAFATE LIQUID PO SCH ×4 (01:39→20:50)
[2016-12-01] MEDS: ZOSYN 3.375 GM/NS 50 ML IV SCH ×4 (02:52→20:52)
[2016-12-01] MEDS: DUONEB (A & A) INH SCH ×6 (03:25→23:10)
[2016-12-01] MEDS: MORPHINE IV PRN ×2 (04:35→21:05)
[2016-12-01 05:36] LABS: BASO% 0.1 % (0.0-0.8); HEMATOCRIT 23.3 % (42.0-52.0); HEMOGLOBIN 7.4 g/dL (14.0-18.0); IMM GRAN# 0.08 X1000 (0.0-0.04); IMM GRAN% 1.1 % (0.0-0.5); LYMPH# 0.27 X1000 (1.2-3.4); LYMPH% 3.7 % (20.5-51.1); MANUAL DIFF NEEDED? YES; MCH 29.5 PG (27-31); MCHC 31.8 g/dL (33-37); MCV 92.8 FL (81-99); MONO# 0.58 X1000 (0.11-0.59); MPV 10.9 FL (7.4-10.4); NEUT% 87.1 % (42.2-75.2); RBC 2.51 XMIL (4.7-6.1)
[2016-12-01 05:49] LABS: AGAP 11; BUN 43 mg/dL (8-22); CALCIUM 8.3 mg/dL (8.8-10.2); CHLORIDE 104 mmol/L (98-107); COSMO 288; POTASSIUM 4.4 mmol/L (3.5-5.1); SODIUM 139 mmol/L (136-145); TCO2 24 mmol/L (25-35)
[2016-12-01 06:26] LABS: BANDS 7 % (0-1); EOS 1 % (1-10); LYMPHS 5 % (21-51); MONO 6 % (1-9); TARGET CELLS 1+
[2016-12-01] MEDS: PULMICORT INH SCH ×2 (07:34→19:50)
[2016-12-01 08:56] LABS: BASO% 0.1 % (0.0-0.8); HEMATOCRIT 22.3 % (42.0-52.0); IMM GRAN# 0.08 X1000 (0.0-0.04); IMM GRAN% 1.1 % (0.0-0.5); LYMPH# 0.23 X1000 (1.2-3.4); LYMPH% 3.2 % (20.5-51.1); MANUAL DIFF NEEDED? YES; MCH 29.2 PG (27-31); MCHC 31.4 g/dL (33-37); MCV 92.9 FL (81-99); MONO# 0.76 X1000 (0.11-0.59); MONO% 10.5 % (1.7-9.3); MPV 12.1 FL (7.4-10.4); NEUT% 85.1 % (42.2-75.2); PLT 36 X1000 (130-400); RETIC% 0.34 % (0.8-2.1); RETIC-HE 20.9 PG (28.2-36.6)
[2016-12-01 09:27] LABS: BANDS 6 % (0-1); LYMPHS 3 % (21-51); MONO 5 % (1-9)
[2016-12-01] MEDS ORDERED: SENSORCAINE-MPF 0.5%/EPI 1:200,000 ONE (09:29)
[2016-12-01 09:30] LABS: HYPOCHROM OCCASIONAL
[2016-12-01] MEDS: BACTROBAN OINTMENT TOP SCH ×2 (09:52→20:51)
[2016-12-01] MEDS: CALMOSEPTINE OINTMENT TOP SCH ×2 (09:53→20:51)
[2016-12-01] MEDS: FOLIC ACID PO SCH (10:29)
[2016-12-01] MEDS: CARDIZEM PO SCH ×3 (10:29→20:52)
[2016-12-01] MEDS: LACTINEX PO SCH (10:29)
[2016-12-01] MEDS: DALIRESP PO SCH (10:29)
[2016-12-01] MEDS: ZINC SULFATE PO SCH (10:30)
[2016-12-01] MEDS: LANOXIN PO SCH (10:30)
[2016-12-01] MEDS: SLOW-MAG PO SCH (10:30)
[2016-12-01] MEDS: ASPIRIN EC PO SCH (10:30)
[2016-12-01] MEDS ORDERED: BENADRYL IV ONE (12:21)
[2016-12-01] MEDS ORDERED: TYLENOL PO ONE (12:21)
--- NOTE | 2016-12-01 14:20 | PROGRESS NOTE ---
DATE: 12/01/2016 SUBJECTIVE: This patient states that he is feeling better today. He is still using a nonrebreathing mask at 15 L. I talked to him about hospice care and he agreed with the treatment and plan, also I talked to the family yesterday and they seem to understand that the patient has an end-stage COPD and he will benefit from hospice. Hopefully tomorrow we are going to be able to send this patient home with hospice. OBJECTIVE: Vital Signs: Temperature 98.7 degrees, pulse 97, respiratory rate 21, blood pressure 112/70, O2 saturation 100% on a nonrebreathing mask. HEENT: Head normocephalic. No trauma. PERRLA. Neck: Supple. No JVD. No masses. Central trachea. Chest: Decreased breath sounds globally. Prolonged expiratory phase. He is using accessory muscles to breathe. Has scattered wheezing and rales mostly at the bases. Cardiovascular: RRR. No murmurs. Abdomen: Soft, nontender, nondistended. No hepatosplenomegaly. Extremities: No edema. No clubbing. No cyanosis. Decreased muscle mass. Neurological: The patient is alert and oriented x3. No focal neurological deficits. LABORATORY: WBC 7.2, hemoglobin 7, hematocrit 22.3, platelets 36,000. Sodium 139, potassium 4.4, chloride 104, bicarbonate 24, BUN 43, creatinine 0.7, glucose 88, calcium 8.3. ASSESSMENT AND PLAN: 1. Acute hypoxemic respiratory failure. I will continue with oxygen treatment. This patient has been on and off with the BiPAP machine and also a nonrebreathing mask. He has end-stage chronic obstructive pulmonary disease. Apparently everything is set up for home hospice. 2. Chronic obstructive pulmonary disease exacerbation. Continue with the same management. 3. History of multiple myeloma. Hematology/Oncology is on board. We will continue to monitor. 4. Normocytic anemia. He is status post 2 PRBCs. Continue to monitor. The hemoglobin dropped a little bit but the vital signs are stable. 5. Thrombocytopenia. The platelet count is just about the same compared with yesterday. We will continue to monitor. 6. History of coronary artery disease status post stent placed in the past. Continue with the same management for now. 7. Supraventricular tachycardia versus possible atrial fibrillation. Resolved. I will continue the same management. Cardiology Department has been following this patient. CRITICAL CARE TIME: 35 minutes.
[2016-12-01 21:28] LABS: PLT 32 X1000 (130-400)
[2016-12-01] MEDS: VANCOMYCIN 1,250 MG in NS 250 ML IV SCH (22:33)
[2016-12-02] MEDS: CARAFATE LIQUID PO SCH ×2 (01:14→08:32)
[2016-12-02] MEDS: ZOSYN 3.375 GM/NS 50 ML IV SCH ×2 (02:55→08:34)
[2016-12-02] MEDS: DUONEB (A & A) INH SCH ×4 (03:23→15:17)
[2016-12-02] MEDS: NORCO-7.5 PO PRN ×2 (04:10→14:57)
[2016-12-02 05:47] LABS: BASO% 0.1 % (0.0-0.8); EOS# 0.01 X1000 (0.0-0.7); EOS% 0.1 % (0.0-10.0); HEMATOCRIT 18.4 % (42.0-52.0); HEMOGLOBIN 5.8 g/dL (14.0-18.0); IMM GRAN# 0.06 X1000 (0.0-0.04); IMM GRAN% 0.9 % (0.0-0.5); LYMPH# 0.23 X1000 (1.2-3.4); LYMPH% 3.3 % (20.5-51.1); MANUAL DIFF NEEDED? YES; MCH 29.7 PG (27-31); MCHC 31.5 g/dL (33-37); MCV 94.4 FL (81-99); MONO# 0.75 X1000 (0.11-0.59); MONO% 10.8 % (1.7-9.3); NEUT% 84.8 % (42.2-75.2); PLT 36 X1000 (130-400); RBC 1.95 XMIL (4.7-6.1)
[2016-12-02 05:58] LABS: AGAP 8; ALKALINE PHOSPHATASE 243 U/L (32-122); BUN 33 mg/dL (8-22); CALCIUM 8.2 mg/dL (8.8-10.2); CHLORIDE 102 mmol/L (98-107); COSMO 280; GOT 22 U/L (10-34); GPT 20 U/L (10-44); POTASSIUM 3.9 mmol/L (3.5-5.1); SODIUM 137 mmol/L (136-145); TCO2 27 mmol/L (25-35); TOTAL BILIRUBIN 0.61 mg/dL (0.20-1.00); TOTAL PROTEIN 4.8 g/dL (6.3-8.3)
[2016-12-02 05:59] LABS: BANDS 4 % (0-1); LYMPHS 4 % (21-51); MONO 6 % (1-9)
[2016-12-02] MEDS: ZINC SULFATE PO SCH (08:31)
[2016-12-02] MEDS: DALIRESP PO SCH (08:31)
[2016-12-02] MEDS: LANOXIN PO SCH (08:31)
[2016-12-02] MEDS: CARDIZEM PO SCH ×2 (08:31→12:32)
[2016-12-02] MEDS: ASPIRIN EC PO SCH (08:31)
[2016-12-02] MEDS: LACTINEX PO SCH (08:32)
[2016-12-02] MEDS: SLOW-MAG PO SCH (08:33)
[2016-12-02] MEDS: FOLIC ACID PO SCH (08:33)
[2016-12-02] MEDS ORDERED: NS 1,000 ML ONE (09:39)
[2016-12-02] MEDS: BACTROBAN OINTMENT TOP SCH (10:32)
[2016-12-02] MEDS: CALMOSEPTINE OINTMENT TOP SCH (11:19)
[2016-12-02] MEDS: PULMICORT INH SCH (11:42)
[2016-12-02 14:35] VITALS: BP 109/68
[2016-12-02] MEDS ORDERED: VANCOMYCIN 1,500 MG in NS 250 ML IV SCH (21:00)
--- NOTE | 2016-12-02 22:20 | DISCHARGE SUMMARY ---
ADMISSION DATE: 11/24/2016 DISCHARGE DATE: 12/02/2016 CONSULTATIONS: 1. Delio Sen M.D., Oncology. 2. Lamberto Kim M.D., Pulmonology. PERTINENT PROCEDURES: Chest x-ray showed mild cardiomegaly but mild interstitial pulmonary edema cannot be excluded, however, this has not changed significantly since previous studies. DISCHARGE DIAGNOSES: 1. Acute hypoxic respiratory failure. The patient alternates between BiPAP and non-rebreather. He has end-stage chronic obstructive pulmonary disease. The patient has been set up for home hospice. 2. Chronic obstructive pulmonary disease exacerbation. The patient going home with hospice. 3. History of multiple myeloma. Dr. Sen following. 4. Normocytic anemia status post 2 PRBCs. The patient's hemoglobin and hematocrit dropped again this morning. He will get transfused with another 2 units of PRBCs and then will be discharged home with hospice. 5. Thrombocytopenia, stable. Aware. 6. Coronary artery disease status post stent in the past. 7. Supraventricular tachycardia versus atrial fibrillations, resolved. HOSPITAL COURSE: Briefly, Mr. Randolph is a 71-year-old, male who has a past medical history of multiple myeloma followed by Dr. Sen, end-stage COPD on home O2, pulmonary hypertension and systolic heart failure with an EF of 40-45%, pulmonary hypertension, coronary artery disease status post stenting, chronic anemia and bilateral iliac aneurysms. The patient is well known to our service for multiple medical problems. He was recently discharged from our service on 10/17/2016. At that time he was diagnosed with a COPD exacerbation, chronic respiratory failure, and pulmonary hypertension. He was discharged to a long-term care facility in [place]. Patient reported that he was discharged prior to his 6 week date for reasons that we were not exactly sure. He cannot tell us if he left on his own accord or if he was just discharged from that facility. The patient started experiencing some shortness of breath and presented back here on 11/14/16. The patient was admitted for normocytic anemia with combination of his underlying lung cancer. He did have heme-positive stools. He was given [address] Sen was consulted for his cancer as well as multiple myeloma. The patient was seen by Dr. Sen for kappa light chain multiple myeloma, and until this past August 2016 his disease was well-controlled. The patient had been receiving Velcade and Revlimid, 2 weeks on, 1 week off. He has not been receiving his therapy secondary to being in a rehabilitation facility. They do not make any mention of any lung cancers but patient is end-stage COPD requiring home O2. The patient did go into atrial flutter with rapid ventricular response. He was moved to [facility] and placed on a Cardizem drip as well as IV digoxin, along with his beta-blockers. Once rate controlled. He was switched to p.o. medications. The patient continued to be on and off BiPAP with Ventimask. Patient was a Level 1. Hospice was consulted. They did choose [facility]. The patient will be discharged home with [facility]. They will continue with BiPAP. The patient was set to be discharged first thing this a.m., however, his hemoglobin overnight, fell from 7 to 22, [address] Contreras has spoken with the family. They are going to transfuse 2 units of blood after his blood transfusions. He will still be discharged home with hospice. DISCHARGE DIET: Regular with Ensure and Boost. DISCHARGE MEDICATIONS: As per Dr. Contreras. Please see MAR. DISPOSITION: Patient is being discharged home with [facility] to continue on BiPAP. DISCHARGE TIME: Greater than 30 minutes. Dictated by KAY Suresh for Jose Martin Mcqueen MD
== END 2016-12-02 18:15 | disposition hospice, home (50) | DRG 840 ==
LOC: EDBD → ED 14:53 → 4N 19:01 → 3S 11-28 16:55
PROVIDERS: ATTEND Internal Medicine
PROC: 30233N1 Transfusion of Nonautologous Red Blood Cells into Peripheral Vein, Percutaneous Approach (ICD-10-PCS; principal; 2016-11-24)
DX: C90.00 Multiple myeloma not having achieved remission (principal); J96.21 Acute and chronic respiratory failure with hypoxia; J18.9 Pneumonia, unspecified organism; I11.0 Hypertensive heart disease with heart failure; D69.6 Thrombocytopenia, unspecified; I27.2 Other secondary pulmonary hypertension; I50.22 Chronic systolic (congestive) heart failure; J44.0 Chronic obstructive pulmonary disease with (acute) lower respiratory infection; J44.9 Chronic obstructive pulmonary disease, unspecified; I47.1 Supraventricular tachycardia; K92.1 Melena; J44.1 Chronic obstructive pulmonary disease with (acute) exacerbation; I48.91 Unspecified atrial fibrillation; Z99.81 Dependence on supplemental oxygen; E78.5 Hyperlipidemia, unspecified; R79.1 Abnormal coagulation profile; I25.10 Atherosclerotic heart disease of native coronary artery without angina pectoris; Z66 Do not resuscitate; D50.0 Iron deficiency anemia secondary to blood loss (chronic); N28.9 Disorder of kidney and ureter, unspecified; Z79.899 Other long term (current) drug therapy; Z79.82 Long term (current) use of aspirin; Z79.02 Long term (current) use of antithrombotics/antiplatelets; Z79.51 Long term (current) use of inhaled steroids; Z95.5 Presence of coronary angioplasty implant and graft; D64.9 Anemia, unspecified
CPT/HCPCS: 36415; 36430; 71010; 80048; 80053; 80202; 82270; 82550; 82607; 82746; 82784; 82805; 82948; 83735; 83880; 83883; 84100; 84155; 84165; 84443; 84484; 85025; 85045; 85379; 85610; 85730; 86334; 86850; 86900; 86901; 86920; 93005; 93010; 94640; 94660; 94761; 94762; 94799; C9113; J1160; J1572; J1940; J2270; J2543; J3370; J7030; J7040; J7050; P9016; 97110-GP; 97530-GP; S0020; S0164